=== PATIENT | female | born 1965 | race African-American/Black ===

== ENCOUNTER 2019-09-30 14:11 | Inpatient (IN) | payer MEDICARE, MEDICAID ==
[2019-09-30] MEDS ORDERED: Nitroglycerin 50 MG/250 ML BOT 250 ML ONE (14:56)
[2019-09-30] MEDS ORDERED: Nitroglycerin 50 MG/250 ML BOT 250 ML IVPB SCH (15:00)
[2019-09-30 15:24] LABS: Bilirubin Negative (Negative); Blood, Urine 1+ (Negative); Clarity Clear (Clear); Glucose, Urine (Dipstick) Normal (Negative); Leukocyte Negative Leu/uL (Negative); Nitrite Negative (Negative); Protein, Urine (Dipstick) 20 mg/dL (Neg-Trace); RBC/HPF 0-3 HPF (0-3); Squamous Epithelial None Seen HPF (0-3); Urobilinogen Normal mg/dL (Less than 2); WBC/HPF 0-3 HPF (0-3)
[2019-09-30 15:26] LABS: Hemoglobin 15.5 g/dL (12.0-16.0); Mean Corpuscular HGB CONC 31.6 g/dL (32.0-36.0); Mean Corpuscular Hemoglobin 31.8 pg (27.0-31.0); Mean Platelet Volume 7.9 fL (7.4-10.4); Platelet Count 196 thou/uL (130-400); RBC Distribution Width 15.9 % (11.5-14.5); Red Blood Cell (RBC) Count 4.86 mill/uL (4.20-5.40)
[2019-09-30 15:26] LABS: Bacteria/HPF Rare-Few HPF (None Seen)
[2019-09-30] MEDS ORDERED: Ketamine 50 MG/ML (10ML VIAL) ONE (15:30)
[2019-09-30] MEDS ORDERED: Rocuronium Bromide 50 MG/5 ML VIAL ONE (15:31)
[2019-09-30 15:52] LABS: Anisocytosis SLIGHT = 6-15 cells (100X) (0-5/hpf); Band 10 % (5-11); Lymphocytes 18 % (21-51); MDiff Complete? YES; Macrocytosis SLIGHT = 6-15 cells (100X) (0-5/hpf); Monocytes 9 % (0-10); Neutrophil 63 % (42-75); Nucleated RBC 11 % (0); Platelet Morphology Comment Appears Adequate; Polychromasia MODERATE = 3-4 cells (100X) (0-2/hpf); White Blood Cell (WBC) Count 6.9 thou/uL (4.8-10.8)
[2019-09-30] MEDS ORDERED: fentaNYL Citrate/PF 2,000 MCG in Sodium Chloride 0.9% 60 ML IV SCH (15:57)
--- NOTE | 2019-09-30 15:57 | RAD ---
EXAM: Single view of the chest HISTORY: CHF exacerbation and dyspnea COMPARISON: 09/30/2019 at 10:42 AM FINDINGS: Single view of the chest shows an enlarged but stable cardiomediastinal silhouette. An end otracheal tube is seen with its tip at the lower border of the clavicles. An NG tube courses off the inferior aspect of the film. There are bilateral perihilar hazy opacities likely secondary to pu lmonary edema. The bones are unremarkable. IMPRESSION: 1. Appropriate position of lines and tubes 2. Congestive heart failure
[2019-09-30 16:12] LABS: Actual Bicarbonate (HCO3a) 43.6 mEq/L (22-28); Analyzer IN Cardio ER; Base Excess (BEa) 10.6 mEq/L (-2.0 to +3.0); Calcium, Ionized 1.12 mmol/L (1.12-1.30); Carboxyhemoglobin (COHb) 3.4 gm% (0.0-3.0); Hemoglobin (Hb) 15.8 g/dL (12.0-16.0); Potassium - ABG Lab 3.35 mmol/L (3.70-5.30)
[2019-09-30 16:14] LABS: CO2 Tension 107.3 mmHg (35.0-45.0); O2 Tension (PaO2) 53.5 mmHg (80.0-100.0); pH, Arterial 7.23 (7.35-7.45)
[2019-09-30 16:15] LABS: ALV-art Gradient 240.175 (0-20); Puncture Site RB
[2019-09-30 16:16] LABS: ALV-art Gradient 529.375 (0-20); Actual Bicarbonate (HCO3a) 35.7 mEq/L (22-28); Analyzer IN Cardio ER; Base Excess (BEa) 9.2 mEq/L (-2.0 to +3.0); CO2 Tension 55.3 mmHg (35.0-45.0); Calcium, Ionized 1.06 mmol/L (1.12-1.30); Carboxyhemoglobin (COHb) 3.4 gm% (0.0-3.0); Hemoglobin (Hb) 15.7 g/dL (12.0-16.0); O2 Tension (PaO2) 114.5 mmHg (80.0-100.0); Potassium - ABG Lab 3.27 mmol/L (3.70-5.30); Puncture Site RB; pH, Arterial 7.43 (7.35-7.45)
[2019-09-30] MEDS ORDERED: Lorazepam 2 MG/ML VIAL ONE ×2 (17:43→18:49)
[2019-09-30] MEDS ORDERED: Propofol 1,000 MG/100 ML VIAL IV ONE ×2 (17:46→18:50)
--- NOTE | 2019-09-30 18:07 | HP ---
PRIMARY CARE PHYSICIAN: Nusrat. CHIEF COMPLAINT: Respiratory failure, intubated. HISTORY OF PRESENT ILLNESS: This is a 53-year-old female with a history of hypertension, asthma, obstructive sleep apnea and undetermined type of congestive heart failure, on 80 mg of Lasix twice a day. Her mother noted that the patient has been really sleepy lately and the patient had a TSH test showing a TSH of 40, the previous week. She was seen in Dr. Rudolph's office with the mother today and noted to be room air sats in the 70s, so she was sent to the emergency room. There, she was found to be dyspneic, hypoxic, very short of breath. In the [facility], she was put on BiPAP, which helped her breathing significantly. She had no more dyspnea. They are not able to use any lower oxygen levels for the BiPAP however. The patient was noted to have an elevated brain natriuretic peptide and congestive changes on her chest x-ray and so she was transferred to our hospital. En route, the patient started becoming a little bit confused. EMS concerned about the high levels of oxygen with the BiPAP and so they took her off the BiPAP, but kept her on a non-rebreather. She became more confused and somnolent. She got to the emergency room, here she was difficult to arouse at all. They did an ABG and found her to be in hypercapnic respiratory failure with a CO2 over 100. This did not improve with BiPAP and so the patient had to be intubated. Her repeat ABG after the intubation, the CO2 was down to the 50s. She has been otherwise stable. PAST MEDICAL HISTORY: All history taken from the chart due to patient's intubated status; 1. Hypertension. 2. Hypothyroidism. 3. Asthma. 4. Obstructive sleep apnea. 5. Congestive heart failure noted in the ER note today only. PAST SURGICAL HISTORY: 1. Brain surgery. 2. Hysterectomy. PAST PSYCHIATRIC HISTORY: Includes depression and she sees [facility]. SOCIAL HISTORY: The patient smokes cigarettes one pack per day. Drinks socially about once a month. No alcohol use. Lives with her mother. ALLERGIES: NO KNOWN DRUG ALLERGIES. CURRENT MEDICATIONS: 1. Amlodipine 5 mg daily. 2. Aspirin 81 mg daily. 3. Clonidine 0.2 mg 3 times a day. 4. Coreg 6.25 mg twice a day. 5. Lasix 80 mg two times a day. 6. Levothyroxine 200 mcg daily. 7. Potassium chloride 10 mEq twice a day. 8. ProAir inhaler as needed. 9. Risperdal 0.5 mg daily at bedtime. 10. Benazepril 40 mg daily. FAMILY HISTORY: Unable to obtain secondary to the patient's mental status. REVIEW OF SYSTEMS: Unable to obtain secondary to the patient's mental status. PHYSICAL EXAMINATION: VITAL SIGNS: Blood pressure 170/95, pulse 88, respirations 25 on the vent, temperature 98.2. GENERAL: Well-developed obese female, sedated on the vent. HEENT: Pupils are 3 mm bilaterally and sluggish reaction after sedation for intubation. Oropharynx obscured by ET tube. NECK: No lymphadenopathy. No thyroid nodules or enlargement. She does have some JVD lying down flat. HEART: Regular rate and rhythm. No murmurs, rubs, or gallops. LUNGS: She has some coarse breath sounds bilaterally with no focal findings. ABDOMEN: Soft, obese, and does not appear tender to palpation. There is no guarding. There are no masses and normoactive bowel sounds. EXTREMITIES: No clubbing or cyanosis. There is any 1+ pitting edema in bilateral lower extremities to about the mid alvarado area. SKIN: No rashes or lesions noted. NEUROLOGIC: The patient is currently without reflexes and pupillary exam is equal bilaterally though is slow. Per the ER physician report before sedation intubation, she was moving all extremities equally, had no facial droop and her pupils were equally reactive and brisk. LABORATORY DATA: CBC with normal white count, normal hemoglobin, hematocrit low at 49, MCV is elevated at 101, platelet count normal. No bandemia. Complete metabolic panel is notable for chloride of 97 and bicarb of 35, a BUN of 23 and a creatinine of 1.18, glucose of 110, AST is 61, ALT is 91. The rest was normal. Brain natriuretic peptide was elevated at 179. TSH was elevated at 46. Troponin was negative x2 and negative x3 now. Lactic acid was normal. Urinalysis showed no evidence of infection. Blood gases as per HPI. IMAGING STUDIES: Chest x-ray, I did review the chest x-ray done in the emergency room along with the radiologist's report. There is an enlarged mediastinal silhouette with some bilateral perihilar opacities, likely secondary to pulmonary edema, also with appropriately placed endotracheal tube. ASSESSMENT: 1. Acute on chronic hypercapnic and hypoxic respiratory failure. The patient has evidence with high bicarb on her basic metabolic panel of chronic CO2 retention. Uncertain what tipped her over the edge today, most likely is due to congestive failure. We will consult Pulmonology for vent management. 2. Acute on chronic congestive heart failure, undetermined type. We will put the patient on IV Lasix 60 mg twice a day. We will consult Cardiology, Dr. Rudolph. We will get an echocardiogram as well. The patient is currently on a nitroglycerin drip. 3. Hypertension, uncontrolled. We will give IV medications to keep blood pressure under control. 4. Hypothyroidism. We will resume the patient's levothyroxine, we will give IV for now until she is able to take p.o. 5. GI prophylaxis. We will put the patient on Pepcid twice a day. 6. Deep venous thrombosis prophylaxis. We will put the patient on Lovenox subcu. 7. Acute renal failure. We will monitor closely. Hopefully, we will improve with diuresis of her congestive heart failure and control of her blood pressure, currently not significantly elevated. 8. Code status. I was unable to address this with the patient due to her intubated status. I did try calling the mother, Padmini Abdul, at [phone]. However, she is not answering her phone currently. I did leave a message for her to call the hospital. Job ID: [id number] [facility]
[2019-09-30] MEDS ORDERED: Acetaminophen 325 MG TAB PO PRN (18:17)
[2019-09-30] MEDS ORDERED: Senokot S 8.6-50 MG TAB PO PRN (18:17)
[2019-09-30] MEDS ORDERED: Ondansetron PF 4 MG/2 ML Vial IVP PRN (18:17)
[2019-09-30] MEDS ORDERED: Ondansetron ODT 4 MG TAB PO PRN (18:17)
[2019-09-30] MEDS ORDERED: Acetaminophen 650 MG Suppository PR PRN (18:17)
[2019-09-30 19:14] LABS: Troponin I Less than 0.010 ng/mL (< 0.028)
[2019-09-30] MEDS ORDERED: Propofol BOLUS 1,000 MG/100 ML VIAL IV PRN (19:25)
[2019-09-30] MEDS ORDERED: Morphine 2 MG/ML SYRINGE SLOW IVP PRN (19:25)
[2019-09-30] MEDS ORDERED: Fentanyl BOLUS 250 ML IVPB PRN (19:25)
[2019-09-30] MEDS ORDERED: DISCONTINUE PREVIOUS NARCOTIC PAIN MEDICATIONS AND BENZODIAZEPINES FS SCH (19:25)
[2019-09-30] MEDS: Famotidine/PF 20 mg/2ml Vial SLOW IVP SCH (20:03)
[2019-09-30] MEDS: hydrALAZINE 20 MG/ML VIAL SLOW IVP PRN (22:25)
[2019-09-30 22:26] LABS: Troponin I Less than 0.010 ng/mL (< 0.028)
[2019-09-30] MEDS: Propofol 1,000 MG/100 ML VIAL IV PRN (22:57)
[2019-10-01 04:13] LABS: #Basophils 0.1 thou/uL (0.0-0.2); #Lymphocytes 2.1 thou/uL (1.20-3.40); #Monocytes 1.3 thou/uL (0.11-0.59); #Neutrophils 10.7 thou/uL (1.40-6.50); %Basophils 0.5 % (0.0-1.0); %Eosinophils 0.3 % (0.0-10.0); %Lymphocytes 14.9 % (21.0-51.0); %Monocytes 8.8 % (0.0-10.0); %Neutrophils 75.5 % (42.0-75.0); Hemoglobin 15.2 g/dL (12.0-16.0); Mean Corpuscular HGB CONC 31.3 g/dL (32.0-36.0); Mean Platelet Volume 8.2 fL (7.4-10.4); Platelet Count 189 thou/uL (130-400); RBC Distribution Width 16.4 % (11.5-14.5); White Blood Cell (WBC) Count 13.4 thou/uL (4.8-10.8)
[2019-10-01 04:23] LABS: Anion Gap 15 mmol/L (10-20); BUN (Urea Nitrogen) 18 mg/dL (9.8-20.1); Calc. Creatinine Clearance 118 mL/min (70-130); Calcium 8.6 mg/dL (7.8-10.44); Carbon Dioxide 36 mmol/L (22-29); Chloride 95 mmol/L (98-107); Estimated GFR-MDRD 81; Glucose 86 mg/dL (70-105); Sodium 143 mmol/L (136-145)
[2019-10-01] MEDS: Levothyroxine Sodium 200 MCG VIAL IVP SCH (05:41)
[2019-10-01] MEDS: Furosemide 100 MG/10 ML VIAL SLOW IVP SCH ×2 (05:41→13:30)
[2019-10-01] MEDS: hydrALAZINE 20 MG/ML VIAL SLOW IVP PRN (06:00)
[2019-10-01 08:15] LABS: Actual Bicarbonate (HCO3a) 36.9 mEq/L (22-28); Base Excess (BEa) 13.8 mEq/L (-2.0 to +3.0); CO2 Tension 39.5 mmHg (35.0-45.0); Carboxyhemoglobin (COHb) 1.5 gm% (0.0-3.0); Hemoglobin (Hb) 16.5 g/dL (12.0-16.0); Potassium - ABG Lab 2.55 mmol/L (3.70-5.30)
[2019-10-01 08:17] LABS: O2 Tension (PaO2) 49.2 mmHg (80.0-100.0); Puncture Site L.R.; pH, Arterial 7.59 (7.35-7.45)
[2019-10-01 08:18] LABS: ALV-art Gradient 115.325 (0-20)
[2019-10-01] MEDS: Lorazepam 2 MG/ML VIAL SLOW IVP PRN ×2 (08:28→15:10)
[2019-10-01] MEDS: Propofol 1,000 MG/100 ML VIAL IV PRN ×2 (08:28→16:16)
[2019-10-01] MEDS: Enoxaparin Sodium 40 MG/0.4 ML SYRINGE SC SCH (08:36)
[2019-10-01] MEDS: Famotidine/PF 20 mg/2ml Vial SLOW IVP SCH ×2 (08:36→20:04)
[2019-10-01] MEDS ORDERED: FLU VACC QS2019-20(6MOS UP)/PF 60 MCG/0.5 ML SYRINGE IM ONE (09:00)
[2019-10-01] MEDS ORDERED: Potassium Chloride 40 MEQ in Premix Bag 1 BAG IVPB PRN (09:22)
[2019-10-01] MEDS ORDERED: CCU ELECTROLYTE REPLACEMENT PROTOCOL FS PRN (09:22)
[2019-10-01] MEDS ORDERED: PHOS-NAK 1 PKT PACK PO PRN ×2 (09:22)
[2019-10-01] MEDS ORDERED: Magnesium Oxide 400 MG TAB PO PRN ×2 (09:22)
[2019-10-01] MEDS ORDERED: Magnesium 2 GM/50 ML 2 GM in Premix Bag 1 BAG IVPB PRN (09:22)
[2019-10-01] MEDS ORDERED: Potassium Phosphate 9 MMOL in Sodium Chloride 0.9% 100 ML IVPB PRN (09:22)
[2019-10-01] MEDS ORDERED: Potassium Phosphate 15 MMOL in Sodium Chloride 0.9% 250 ML 250 ML IV PRN (09:22)
[2019-10-01] MEDS ORDERED: Potassium Chloride 20 MEQ TAB PO PRN (09:22)
[2019-10-01] MEDS ORDERED: Potassium Chloride 40 MEQ in Sodium Chloride 0.9% 250 ML 250 ML IVPB PRN (09:22)
[2019-10-01] MEDS ORDERED: Potassium Phosphate 12 MMOL in Sodium Chloride 0.9% 250 ML 250 ML IV PRN (09:22)
[2019-10-01] MEDS: Cefepime 1 GM in Sodium Chloride 0.9% 100 ML IVPB SCH ×2 (09:37→20:04)
[2019-10-01] MEDS: methylPREDNISolone Sod Succ 40 MG VIAL IVP SCH ×2 (11:42→17:37)
--- NOTE | 2019-10-01 14:15 | CON ---
DATE OF CONSULTATION: HISTORY OF PRESENT ILLNESS: Luiz Abdul is a 53-year-old morbidly obese female, who is now in the ICU, intubated on the vent. I spoke to her daughter, who is a supervisor television chassis repair, states that she was taken to Dr. Silverio's office, primary care physician, in [place] with symptoms of being excessively sleepy. She was hypoxic. She was then transferred to [facility] via [place] and the diagnosis of CHF, she was given some Lasix. Though, BNP is only 150. Smoker, unclear how much she smokes, but according to the daughter, she walks in the house, goes outside the house without getting markedly short of breath. . PAST MEDICAL HISTORY: Morbid obesity, hypertension, probably asthma, probably COPD, severe hypothyroidism. According to the daughter, she is giving her medication for anxiety. PAST SURGICAL HISTORY: Included hysterectomy, some kind of craniotomy. PSYCHIATRIC HISTORY: Depression, sees [facility]. HOME MEDICATIONS: Include; 1. Amlodipine 10. 2. Aspirin 81. 3. Catapres 0.1 three times a day. 4. Coreg 12.5 two a day. 5. Lasix 80 mg a day. 6. Synthroid 100 mg two tablets a day. 7. Potassium. 8. ProAir. 9. Risperidone 1 mg. 10. Benazepril 40. ALLERGIES: APPARENTLY, NONE. REVIEW OF SYSTEMS: Unobtainable. PHYSICAL EXAMINATION: VITAL SIGNS: Pulse 67, blood pressure 100/70, saturations are 95%, respirations 20. GENERAL: On sedation. When it is decreased, she is awake, responsive. 2+ edema. I's and O's are negative. CHEST: Decreased breath sounds. No wheezing or crackles. CARDIAC: Normal S1 and S2. No gallops. ABDOMEN: No masses. LABORATORY DATA: White count 13,000, H and H of 15 and 48, and platelet count 189. TSH was elevated at 40. Potassium was low at 3. Echo is being performed. A pO2 was 49, pCO2 of 39, pH of 7.59 on a rate of 30, FiO2 of 30%. IMPRESSION: 1. Respiratory failure. 2. Congestive heart failure. 3. Possibly aspiration. 4. Morbid obesity. 5. Probably sleep apnea. 6. Depression. 7. Bipolar. 8. Tobacco abuse. 9. Chronic obstructive pulmonary disease. 10. Severe hypothyroidism. PLAN: I agree with IV Synthroid, IV antibiotics, neb treatments, and steroids. Await results of the echo, wean slowly. She may probably need an outpatient sleep study. Obviously, we discussed situation when she is more awake and responsive. This is a 45-minute of critical care time. Job ID: [id number]
--- NOTE | 2019-10-01 20:48 | CON ---
DATE OF CONSULTATION: 10/01/2019 REASON FOR CONSULTATION: Heart failure. HISTORY OF PRESENT ILLNESS: Mrs. Abdul is a very pleasant 53-year-old female, who comes to the hospital for shortness of breath. She was seeing her primary care doctors, was found to be dyspneic, hypoxic and very short-winded. She went to the [place] [facility]. She was placed on BiPAP and eventually transferred over here. She was intubated eventually for airway protection as she became obtunded and was found to be hypercapnic with CO2 over 100. Cardiology is being consulted for evaluation of possible heart failure. I saw her in the office in 2018. At that point, she was there for complaints of lower extremity edema and shortness of breath. She had a stress and an echo ordered; however, she never did any of these procedures. She never followed up and that was the only time she was seen. On my evaluation today, Ms. Abdul is intubated and sedated and cannot provide any information. PAST MEDICAL HISTORY: 1. Hypertension. 2. Hypothyroidism. 3. Bronchial asthma. 4. Obstructive sleep apnea. 5. History of possible congestive heart failure. She has been on Lasix for the last year. SURGICAL HISTORY: 1. Some type of brain surgery. 2. Hysterectomy. SOCIAL HISTORY: One pack a day. Social alcohol use. No drug use. ALLERGIES: NO KNOWN DRUG ALLERGIES. OUTPATIENT MEDICATIONS: 1. Amlodipine 5 mg a day. 2. Aspirin 81 a day. 3. Clonidine 0.2 mg 3 times a day. 4. Coreg 6.25 mg b.i.d. 5. Lasix 80 mg twice a day. 6. Levothyroxine 200 mcg a day. 7. Potassium chloride 10 mEq twice a day. 8. ProAir. 9. Risperdal. 10. Benazepril 40 mg a day. FAMILY HISTORY: Unobtainable as patient is sedated and intubated. REVIEW OF SYSTEMS: Unobtainable as the patient is sedated and intubated. ALLERGIES: NO KNOWN DRUG ALLERGIES. PHYSICAL EXAMINATION: VITAL SIGNS: Temperature up to 100.2 earlier today, however, since then has been about 98.9, pulse 77, respiratory rate 10, saturating 100% on 40% FiO2, blood pressure 121/59. GENERAL: Sedated and intubated. LUNGS: Coarse breath sounds anteriorly. NECK: Supple. CARDIOVASCULAR: S1 and S2. No S3 or S4. There is a grade 3/6 systolic murmur at the right upper sternal border. ABDOMEN: Soft. Positive bowel sounds. EXTREMITIES: 2+ edema. SKIN: Warm and dry. LABORATORY DATA: Laboratory work was reviewed. White count of 13, hemoglobin of 15, hematocrit of 48, and platelet count of a 189. ABG was reviewed. PH went from 7.2 to 7.5 and the CO2 went from 107 down to 39. Chemistries showed a sodium of 143, potassium of 3.0, BUN of 18, creatinine of 0.88. Troponin was negative x3. BNP was 156. UA 1+ blood and crystals, otherwise unremarkable. EKG was reviewed. Normal sinus rhythm. No ischemic changes. Blood cultures were negative as well as urine culture so far. Chest x-ray showed changes consistent with heart failure. Echocardiogram was reviewed. It showed LV function of 60% to 65% There is grade 1 diastolic dysfunction, LVH. Right-sided pressures are mildly elevated. ASSESSMENT AND PLAN: 1. Acute on chronic diastolic congestive heart failure. 2. Hypercapnic hypoxic respiratory insufficiency requiring mechanical ventilation. 3. Left ventricular hypertrophy. 4. Hypertension. PLAN: 1. Agree with continued diuresis for now. 2. Most likely her lower extremity edema is related to right-sided heart failure from sleep apnea and obesity hypoventilation syndrome. 3. Likely some level of chronic obstructive pulmonary disease given tobacco use. 4. Continue supportive care otherwise. Thank you for letting us to participate in the care of your patient. We will continue follow. 45 minutes of critical care time. Job ID: [id number]
--- NOTE | 2019-10-01 20:56 | PDOC.HOSPP ---
- Subjective Encounter Date: 10/01/19 Encounter Time: 18:00 Subjective: f/u for resp failure on current SIMV with FIO2 50% likely due to COPD and hypercapnic insult. Remains on [facility] ventilation with echo showing preserved EF 60%. - Objective Vital Signs & Weight: Vital Signs (12 hours) Temp Pulse Resp BP Pulse Ox 10/01/19 20:00 99.1 F 10 L 10/01/19 19:00 84 144/80 H 10/01/19 18:00 10 L 10/01/19 16:19 76 123/61 10/01/19 16:00 98.9 F 10 L 10/01/19 14:00 10 L 10/01/19 13:32 86 135/61 10/01/19 13:31 74 10 L 98 10/01/19 12:00 98.9 F 10 L 10/01/19 10:14 76 154/60 H 10/01/19 10:00 12 Weight Admit Weight 214 lb Weight 214 lb 8.156 oz Most Recent Monitor Data Heart Rate from ECG 73 NIBP 127/65 NIBP BP-Mean 85 Respiration from ECG 16 SpO2 100 I&O: 09/30/19 10/01/19 10/02/19 06:59 06:59 06:59 Intake Total 330 851 Output Total 545 2755 Balance -215 -1904 Result Diagrams: 10/01/19 03:25 10/01/19 03:25 Additional Labs: Microbiology 09/30/19 16:02 Venous blood - Right Arm Blood Culture - Preliminary Specimen has been received and culture in progress. No Growth to date. 09/30/19 16:02 Venous blood - Left Arm Blood Culture - Preliminary Specimen has been received and culture in progress. No Growth to date. 09/30/19 14:55 Urine adams catheter Urine Culture - Preliminary NO GROWTH AT 24 HOURS Laboratory Tests 09/24/19 09/30/19 09/30/19 09:17 10:38 10:38 WBC MCV Potassium 3.5 3.6 Troponin I B-Natriuretic Peptide 179.3 H 09/30/19 09/30/19 09/30/19 15:13 15:13 15:13 WBC 6.9 MCV 101.0 H Potassium Troponin I 0.013 B-Natriuretic Peptide 156.2 H 09/30/19 09/30/19 18:38 21:35 WBC MCV Potassium Troponin I Less than 0.010 Less than 0.010 B-Natriuretic Peptide Radiology Reviewed by me: Yes (Echo - EF 60-65%, Grade I/III diast dysfx, RVSP 37mmHg) EKG Reviewed by me: Yes (Tele - SR) Hospitalist ROS - Medication Medications: Active Medications Generic Name Dose Route Start Last Admin Trade Name Freq PRN Reason Stop Dose Admin Albuterol/Ipratropium 3 ml 10/01/19 13:00 10/01/19 18:59 Duoneb NEB 3 ml [id number] RAHEEL Administration Enoxaparin Sodium 40 mg 10/01/19 09:00 10/01/19 08:36 Lovenox SC 40 mg 0900 RAHEEL Administration Famotidine 20 mg 09/30/19 21:00 10/01/19 20:04 Pepcid SLOW IVP 20 mg Q12HR RAHEEL Administration Furosemide 60 mg 10/01/19 06:00 10/01/19 13:30 Lasix SLOW IVP 60 mg 0600,1400 RAHEEL Administration Hydralazine HCl 10 mg 09/30/19 18:17 10/01/19 06:00 Apresoline SLOW IVP 10 mg Q4H PRN Administration SBP Greater Than 180 Cefepime HCl 1 gm/ Sodium 100 mls @ 200 mls/hr 10/01/19 09:00 10/01/19 20:04 Chloride IVPB 100 mls Q12HR RAHEEL Administration Levothyroxine Sodium 120 mcg 10/01/19 06:00 10/01/19 05:41 Synthroid IVP Not Given 0600 RAHEEL Lorazepam 2 mg 09/30/19 19:25 10/01/19 15:10 Ativan SLOW IVP 10/30/19 19:25 2 mg Q1H PRN Administration Breakthrough agitation Methylprednisolone Sodium Succinate 40 mg 10/01/19 12:00 10/01/19 17:37 Solu-Medrol IVP 40 mg Q6HR RAHEEL Administration Potassium Chloride 40 meq 10/01/19 09:22 10/01/19 09:37 Klor-Con PER TUBE 40 meq ASDIR PRN Administration FOR SERUM K+ 2.5-3.5 Propofol 1,000 mg 09/30/19 19:25 10/01/19 16:16 Diprivan IV 10/30/19 19:25 1,000 mg INF PRN Administration TO ACHIEVE GOAL RASS Protocol - Exam General - other findings: sedate on mech ventilation Eye: PERRL ENT: normocephalic atraumatic, no oropharyngeal lesions ENT - other findings: ETT in place Neck: supple, symmetric, no JVD, no thyromegaly Heart: RRR, no gallops, no rubs, normal peripheral pulses, murmur present, II/IV Heart - other findings: RUSB murmur Respiratory - other findings: diminished and coarse bilat Gastrointestinal: soft, non-tender, non-distended, normal bowel sounds, no palpable masses Extremities: no cyanosis, 1+ LE edema Skin: normal turgor, no lesions Neurological - other findings: sedate on mech ventilation Psychiatric: somnolent, lethargic Hosp A/P (1) Acute respiratory failure with hypoxia and hypercapnia Code(s): J96.01 - ACUTE RESPIRATORY FAILURE WITH HYPOXIA; J96.02 - ACUTE RESPIRATORY FAILURE WITH HYPERCAPNIA Status: Acute Plan: Multifactorial process, continue mech ventilation, aggressive pulmonary support , wean off ventilator as clinically tolerated (2) Acute on chronic diastolic CHF (congestive heart failure) Code(s): I50.33 - ACUTE ON CHRONIC DIASTOLIC (CONGESTIVE) HEART FAILURE Status : Acute Plan: Lasix IV, daily weight, I/O's, EF preserved 60-65% (3) ERIKA (obstructive sleep apnea) Code(s): G47.33 - OBSTRUCTIVE SLEEP APNEA (ADULT) (PEDIATRIC) Status: Chronic Plan: Likely untreated, outpt sleep study for home CPAP (4) Tobacco abuse Code(s): Z72.0 - TOBACCO USE Status: Chronic Plan: Tobacco cessation resources (5) COPD exacerbation Code(s): J44.1 - CHRONIC OBSTRUCTIVE PULMONARY DISEASE W (ACUTE) EXACERBATION Status: Acute Plan: Continue Solumedrol, Duonebs, Cefepime (6) BECKY (acute kidney injury) Code(s): N17.9 - ACUTE KIDNEY FAILURE, UNSPECIFIED Status: Acute Plan: Resolving (7) Morbid obesity Code(s): E66.01 - MORBID (SEVERE) OBESITY DUE TO EXCESS CALORIES Status: Chronic - Plan continue antibiotics, geriatric social work professor, respiratory therapy, DVT proph w/SCDs Continue critical supportive mgmt Wean SIMV as clinically indicated Continue Solumedrol/Duonebs/Cefepime Continue Lasix IV CCU sedation protocol AM lab: BMP, CBC, ABG PCXR in am
[2019-10-02] MEDS: methylPREDNISolone Sod Succ 40 MG VIAL IVP SCH ×4 (00:09→18:16)
[2019-10-02] MEDS: Propofol 1,000 MG/100 ML VIAL IV PRN ×3 (00:18→22:24)
[2019-10-02 04:02] LABS: Hemoglobin 15.9 g/dL (12.0-16.0); Lymphocytes 5 % (21-51); MDiff Complete? YES; Mean Corpuscular Hemoglobin 31.4 pg (27.0-31.0); Mean Platelet Volume 8.4 fL (7.4-10.4); Monocytes 5 % (0-10); Neutrophil 90 % (42-75); Nucleated RBC 1 % (0); Platelet Count 194 thou/uL (130-400); Platelet Morphology Comment Appears Adequate; RBC Distribution Width 16.6 % (11.5-14.5); Red Blood Cell (RBC) Count 5.07 mill/uL (4.20-5.40); White Blood Cell (WBC) Count 12.1 thou/uL (4.8-10.8)
[2019-10-02 04:07] LABS: Calc. Creatinine Clearance 68 mL/min (70-130); Estimated GFR-MDRD 46
[2019-10-02 04:10] LABS: Chloride 95 mmol/L (98-107); Potassium 3.4 mmol/L (3.5-5.1); Sodium 145 mmol/L (136-145)
[2019-10-02 04:13] LABS: Anion Gap 21 mmol/L (10-20); BUN (Urea Nitrogen) 20 mg/dL (9.8-20.1); Calcium 8.1 mg/dL (7.8-10.44); Carbon Dioxide 32 mmol/L (22-29); Glucose 119 mg/dL (70-105)
[2019-10-02] MEDS: Furosemide 100 MG/10 ML VIAL SLOW IVP SCH ×2 (05:05→14:22)
[2019-10-02] MEDS: Levothyroxine Sodium 200 MCG VIAL IVP SCH (05:05)
[2019-10-02 08:15] LABS: Base Excess (BEa) 13.7 mEq/L (-2.0 to +3.0); CO2 Tension 54.5 mmHg (35.0-45.0); Calcium, Ionized 1.01 mmol/L (1.12-1.30); Carboxyhemoglobin (COHb) 1.4 gm% (0.0-3.0); Hemoglobin (Hb) 16.2 g/dL (12.0-16.0); O2 Tension (PaO2) 62.5 mmHg (80.0-100.0); pH, Arterial 7.48 (7.35-7.45)
[2019-10-02 08:27] LABS: ALV-art Gradient 225.875 (0-20); Puncture Site L.R.
--- NOTE | 2019-10-02 08:57 | RAD ---
CHEST 1 VIEW: INDICATION: History of intubation. COMPARISON: Prior exam dated 09/30/2019. FINDINGS: The patient remains intubated with gastric catheter placement. Cardiomegaly and pulmonary vascular c ongestion persist. There are enlarging bilateral pleural effusions. There is worsening airspace opa city in both lower lobes suspicious for atelectasis. No pneumothorax is evident. IMPRESSION: Worsening congestive heart failure. POS: [facility]
[2019-10-02] MEDS: Famotidine/PF 20 mg/2ml Vial SLOW IVP SCH ×2 (09:22→21:23)
[2019-10-02] MEDS: Enoxaparin Sodium 40 MG/0.4 ML SYRINGE SC SCH (09:23)
[2019-10-02] MEDS: Cefepime 1 GM in Sodium Chloride 0.9% 100 ML IVPB SCH ×2 (09:23→21:23)
--- NOTE | 2019-10-02 09:27 | PRG ---
DATE OF SERVICE: 10/02/2019 SUBJECTIVE: This morning sedation was turned off. She is more awake, responsive. OBJECTIVE: VITAL SIGNS: Temperature 97, pulse 72, blood pressure 120/67, and sats 100%. I's and O's have been consistently negative. CHEST: Decreased breath sounds. No wheezing. CARDIAC: Normal S1 and S2. No gallops. ABDOMEN: No masses. LABORATORY DATA: PO2 of 62, pCO2 of . Lytes are normal. Creatinine 1.45. White count 12,000. X-ray shows what appears to be slightly increasing pleural effusion, though EF was clearly normal. IMPRESSION: Respiratory failure, morbid obesity, advanced age, probably diastolic dysfunction. PLAN: I doubt she got significant CHF. BNP is normal. Echo was normal. Possibly the right lung may be atelectatic versus pneumonia. Hold sedation. Continue neb treatments, steroids, and antibiotics. to see whether she is weanable. One-half hour of critical time. Job ID: [id number]
--- NOTE | 2019-10-02 18:59 | PDOC.HOSPP ---
- Subjective Encounter Date: 10/02/19 Encounter Time: 18:45 Subjective: f/u for resp failure on mech vent with SIMV @ 45% FIO2. Tolerating TF's and titrated on Diprivan. Nursing reports increased oral secretions. + BM's today. - Objective Vital Signs & Weight: Vital Signs (12 hours) Temp Pulse Resp BP Pulse Ox 10/02/19 18:36 72 131/65 10/02/19 18:00 24 H 10/02/19 16:57 72 152/67 H 10/02/19 16:00 98.7 F 19 10/02/19 14:13 96 140/70 10/02/19 14:12 75 23 H 93 L 10/02/19 14:00 17 10/02/19 12:00 98.9 F 15 10/02/19 11:16 86 129/93 H 10/02/19 10:00 25 H 10/02/19 09:20 79 129/82 10/02/19 08:00 13 96 10/02/19 07:52 72 129/67 10/02/19 07:50 77 10 L 10/02/19 07:45 97.7 F Weight Admit Weight 214 lb Weight 219 lb 12.814 oz Most Recent Monitor Data Heart Rate from ECG 70 NIBP 131/65 NIBP BP-Mean 87 Respiration from ECG 17 SpO2 96 I&O: 10/01/19 10/02/19 10/03/19 06:59 06:59 06:59 Intake Total 330 1083 720 Output Total 545 3005 1022 Balance -215 -1922 -302 Result Diagrams: 10/02/19 03:10 10/02/19 03:10 Additional Labs: Microbiology 09/30/19 16:02 Venous blood - Right Arm Blood Culture - Preliminary Specimen has been received and culture in progress. No Growth to date. 09/30/19 16:02 Venous blood - Left Arm Blood Culture - Preliminary Specimen has been received and culture in progress. No Growth to date. 09/30/19 14:55 Urine adams catheter Urine Culture - Preliminary NO GROWTH AT 24 HOURS Laboratory Tests 09/24/19 09/30/19 09/30/19 09:17 10:38 10:38 WBC MCV Potassium 3.5 3.6 Troponin I B-Natriuretic Peptide 179.3 H 09/30/19 09/30/1920 15:13 15:13 15:13 WBC 6.9 MCV 101.0 H Potassium Troponin I 0.013 B-Natriuretic Peptide 156.2 H 09/30/19 09/30/19 18:38 21:35 WBC MCV Potassium Troponin I Less than 0.010 Less than 0.010 B-Natriuretic Peptide Radiology Reviewed by me: Yes (PCXR - bilat pleural effusions, ETT/lines in place) EKG Reviewed by me: Yes (Tele - SR) Hospitalist ROS - Medication Medications: Active Medications Generic Name Dose Route Start Last Admin Trade Name Freq PRN Reason Stop Dose Admin Albuterol/Ipratropium 3 ml 10/01/19 13:00 10/02/19 18:35 Duoneb NEB 3 ml [id number] RAHEEL Administration Enoxaparin Sodium 40 mg 10/01/19 09:00 10/02/19 09:23 Lovenox SC 40 mg 0900 RAHEEL Administration Famotidine 20 mg 09/30/19 21:00 10/02/19 09:22 Pepcid SLOW IVP 20 mg Q12HR RAHEEL Administration Furosemide 60 mg 10/01/19 06:00 10/02/19 14:22 Lasix SLOW IVP 60 mg 0600,1400 RAHEEL Administration Hydralazine HCl 10 mg 09/30/19 18:17 10/01/19 06:00 Apresoline SLOW IVP 10 mg Q4H PRN Administration SBP Greater Than 180 Cefepime HCl 1 gm/ Sodium 100 mls @ 200 mls/hr 10/01/19 09:00 10/02/19 09:23 Chloride IVPB 100 mls Q12HR RAHEEL Administration Levothyroxine Sodium 120 mcg 10/01/19 06:00 10/02/19 05:05 Synthroid IVP 120 mcg 0600 RAHEEL Administration Lorazepam 2 mg 09/30/19 19:25 10/01/19 15:10 Ativan SLOW IVP 10/30/19 19:25 2 mg Q1H PRN Administration Breakthrough agitation Methylprednisolone Sodium Succinate 40 mg 10/01/19 12:00 10/02/19 18:16 Solu-Medrol IVP 40 mg Q6HR RAHEEL Administration Potassium Chloride 40 meq 10/01/19 09:22 10/02/19 04:49 Klor-Con PER TUBE 40 meq ASDIR PRN Administration FOR SERUM K+ 2.5-3.5 Propofol 1,000 mg 09/30/19 19:25 10/02/19 16:20 Diprivan IV 10/30/19 19:25 1,000 mg INF PRN Administration TO ACHIEVE GOAL RASS Protocol - Exam General - other findings: sedate on mech ventilation Eye: PERRL, anicteric sclera ENT: normocephalic atraumatic, no oropharyngeal lesions ENT - other findings: increased secretions around ETT Neck: supple, symmetric, no JVD Heart: RRR, no gallops, no rubs, normal peripheral pulses Respiratory - other findings: coarse sounds bilat, diminished in bases Gastrointestinal: soft, non-tender, non-distended, normal bowel sounds, no palpable masses Extremities: no cyanosis, no clubbing, no edema Skin: normal turgor, no lesions Neurological - other findings: sedate on mech ventilation Psychiatric: somnolent Hosp A/P (1) Acute respiratory failure with hypoxia and hypercapnia Code(s): J96.01 - ACUTE RESPIRATORY FAILURE WITH HYPOXIA; J96.02 - ACUTE RESPIRATORY FAILURE WITH HYPERCAPNIA Status: Acute Plan: Multifactorial, continue pulmonary supportive mgmt, mech ventilation (2) Acute on chronic diastolic CHF (congestive heart failure) Code(s): I50.33 - ACUTE ON CHRONIC DIASTOLIC (CONGESTIVE) HEART FAILURE Status : Acute Plan: ? component given preserved EF but diastolic influence possible (3) ERIKA (obstructive sleep apnea) Code(s): G47.33 - OBSTRUCTIVE SLEEP APNEA (ADULT) (PEDIATRIC) Status: Chronic (4) Tobacco abuse Code(s): Z72.0 - TOBACCO USE Status: Chronic (5) COPD exacerbation Code(s): J44.1 - CHRONIC OBSTRUCTIVE PULMONARY DISEASE W (ACUTE) EXACERBATION Status: Acute Plan: Continue Solumedrol, Duonebs, mech ventilation (6) BECKY (acute kidney injury) Code(s): N17.9 - ACUTE KIDNEY FAILURE, UNSPECIFIED Status: Acute Plan: Worsening, decrease IV Lasix 40mg daily (7) Morbid obesity Code(s): E66.01 - MORBID (SEVERE) OBESITY DUE TO EXCESS CALORIES Status: Chronic - Plan continue antibiotics, social work program coordinator, respiratory therapy, DVT proph w/SCDs Continue critical supportive mgmt Wean SIMV as clinically indicated Continue Solumedrol/Duonebs/Cefepime Continue Lasix IV 40mg daily CCU sedation protocol AM lab: BMP, CBC, ABG PCXR in am
--- NOTE | 2019-10-02 19:14 | PDOC.CPN ---
- Subjective Date: 10/02/19 Time: 19:10 Interval history: Remains intubated but currently awake and following commands on minimal sedation. - Review of Systems ROS unobtainable: due to endotracheal tube - Objective Allergies/Adverse Reactions: Allergies Allergy/AdvReac Type Severity Reaction Status Date / Time No Known Allergies Allergy Unverified 09/30/19 14:51 Visit Medications: Current Medications Acetaminophen (Tylenol) 650 mg PO Q4H PRN PRN Reason: Headache/Fever/Mild Pain (1-3) Acetaminophen (Tylenol) 650 mg [place] Q4H PRN PRN Reason: Headache/Fever/Mild Pain (1-3) Albuterol/Ipratropium (Duoneb) 3 ml NEB [id number] RAHEEL Last Admin: 10/02/19 18:35 Dose: 3 ml Enoxaparin Sodium (Lovenox) 40 mg SC 0900 RAHEEL Last Admin: 10/02/19 09:23 Dose: 40 mg Famotidine (Pepcid) 20 mg SLOW IVP Q12HR RAHEEL Last Admin: 10/02/19 09:22 Dose: 20 mg Furosemide (Lasix) 40 mg SLOW IVP DAILY RAHEEL Hydralazine HCl (Apresoline) 10 mg SLOW IVP Q4H PRN PRN Reason: SBP Greater Than 180 Last Admin: 10/01/19 06:00 Dose: 10 mg Nitroglycerin/Dextrose (Nitroglycerin 50 Mg/250 Ml Bot) 250 mls @ 0 mls/hr IVPB INF RAHEEL; Protocol Fentanyl Citrate 2,000 mcg/ (Sodium Chloride) 100 mls @ 0 mls/hr IV INF RAHEEL; Protocol Stop: 10/30/19 15:57 Fentanyl Citrate (Fentanyl Bolus) 250 mls @ 0 mls/hr IVPB PRN PRN PRN Reason: Breakthrough pain/agitation Stop: 10/30/19 19:25 Cefepime HCl 1 gm/ Sodium (Chloride) 100 mls @ 200 mls/hr IVPB Q12HR RAHEEL Last Admin: 10/02/19 09:23 Dose: 100 mls Potassium Chloride 40 meq/ (Sodium Chloride) 270 mls @ 135 mls/hr IVPB ASDIR PRN PRN Reason: FOR SERUM K+ 2.5 - 3.5 Potassium Chloride 40 meq/ (Device) 100 mls @ 50 mls/hr IVPB ASDIR PRN PRN Reason: FOR SERUM K+ 2.5 - 3.5 Magnesium Sulfate 1 gm/ Sodium (Chloride) 102 mls @ 102 mls/hr IV PRN PRN PRN Reason: MAG LEVEL 1.4 - 2.0 Magnesium Sulfate 2 gm/ Device 50 mls @ 50 mls/hr IVPB ASDIR PRN PRN Reason: MAGNESIUM < 1.4 Potassium Phosphate 9 mmol/ (Sodium Chloride) 103 mls @ 25.75 mls/hr IVPB ASDIR PRN PRN Reason: Phosphate 1.0-1.8 Potassium Phosphate 12 mmol/ (Sodium Chloride) 254 mls @ 63.5 mls/hr IV ASDIR PRN PRN Reason: Serum phosphate 0.5-0.9 Potassium Phosphate 15 mmol/ (Sodium Chloride) 255 mls @ 63.75 mls/hr IV ASDIR PRN PRN Reason: Serum Phos < 0.5 Levothyroxine Sodium (Synthroid) 120 mcg IVP 0600 [facility] Last Admin: 10/02/19 05:05 Dose: 120 mcg Lorazepam (Ativan) 2 mg SLOW IVP Q1H PRN PRN Reason: Breakthrough agitation Stop: 10/30/19 19:25 Last Admin: 10/01/19 15:10 Dose: 2 mg Magnesium Oxide (Magnesium Oxide) 400 mg PO BIDPRN PRN PRN Reason: FOR SERUM MAG 1.4 - 2.0 Magnesium Oxide (Magnesium Oxide) 800 mg PO PRN PRN PRN Reason: FOR SERUM MAG < 1.4 Methylprednisolone Sodium Succinate (Solu-Medrol) 40 mg IVP Q6HR [facility] Last Admin: 10/02/19 18:16 Dose: 40 mg Miscellaneous Medication (Phos-Nak) 1 pkt PO TIDPRN PRN PRN Reason: FOR PHOS LEVEL 1.0 - 1.8 Miscellaneous Medication (Phos-Nak) 2 pkt PO TIDPRN PRN PRN Reason: FOR PHOS LEVEL 0.5 - 1.0 Morphine Sulfate (Morphine) 2 mg SLOW IVP Q1H PRN PRN Reason: BREAKTHROUGH PAIN/Agitation Stop: 10/30/19 19:25 Discontinue Previous Narcotic Pain Medications And Benzodiazepines 1 each FS .ONE [facility] Stop: 10/30/19 19:25 Ccu Electrolyte (Replacement Protocol) 0 each FS PRN PRN PRN Reason: FOR ELECTROLYTE REPLACEMENT Ondansetron HCl (Zofran Odt) 4 mg PO Q6H PRN PRN Reason: Nausea/Vomiting Ondansetron HCl (Zofran) 4 mg IVP Q6H PRN PRN Reason: Nausea/Vomiting Potassium Chloride (K-Dur) 40 meq PO ASDIR PRN PRN Reason: FOR SERUM K+ 2.5 - 3.5 Potassium Chloride (Klor-Con) 40 meq PER TUBE ASDIR PRN PRN Reason: FOR SERUM K+ 2.5-3.5 Last Admin: 10/02/19 04:49 Dose: 40 meq Propofol (Diprivan) 1,000 mg IV INF PRN; Protocol PRN Reason: TO ACHIEVE GOAL RASS Stop: 10/30/19 19:25 Last Admin: 10/02/19 16:20 Dose: 1,000 mg Propofol (Diprivan Bolus) 20 mg IV Q5MIN PRN PRN Reason: BREAKTHROUGH AGITATION Stop: 10/30/19 19:25 Scopolamine (Transderm Scop) 1.5 mg TD Q3D RAHEEL Senna/Docusate Sodium (Senokot S) 2 tab PO BID PRN PRN Reason: Constipation Vital Signs & Weight: Vital Signs Temp Pulse Resp BP Pulse Ox 10/02/19 18:36 72 131/65 10/02/19 18:00 24 H 10/02/19 16:57 72 152/67 H 10/02/19 16:00 98.7 F 19 10/02/19 14:13 96 140/70 10/02/19 14:12 75 23 H 93 L 10/02/19 14:00 17 10/02/19 12:00 98.9 F 15 10/02/19 11:16 86 129/93 H 10/02/19 10:00 25 H 10/02/19 09:20 79 129/82 10/02/19 08:00 13 96 10/02/19 07:52 72 129/67 10/02/19 07:50 77 10 L 10/02/19 07:45 97.7 F Admit Weight 214 lb Weight 219 lb 12.814 oz - Physical Exam General: other (S/I following commands.) HEENT: mucus membranes moist Neck: supple neck Cardiac: systolic murmur Lungs: normal breath sounds Neuro: grossly intact Abdomen: active bowel sounds Extremities: 1+ LE edema Skin: clear Musculoskeletal: normal range of motion - Labs Result Diagrams: 10/02/19 03:10 10/02/19 03:10 Troponin/CKMB Troponin I Less than 0.010 ng/mL (< 0.028) 09/30/19 21:35 - Telemetry Sinus rhythms and dysrhythmias: sinus rhythm - Assessment/Plan Assessment/Plan: 1. Acute hypoxic hypercapnic respiratory insufficiency. 2. Acute on chronic diastolic heart faillure, improved. 3. HTN PLAN: - Seems euvolemic at this point. Would hold on any more diuresis for now. - Agree with plan for bronchoscopy - Will follow.
[2019-10-02] MEDS: Scopolamine 1.5 mg/72 hour Patch TD SCH (21:23)
[2019-10-03] MEDS: methylPREDNISolone Sod Succ 40 MG VIAL IVP SCH ×4 (00:23→17:26)
[2019-10-03 03:50] LABS: #Lymphocytes 0.6 thou/uL (1.20-3.40); #Monocytes 0.5 thou/uL (0.11-0.59); #Neutrophils 12.1 thou/uL (1.40-6.50); %Eosinophils 0.1 % (0.0-10.0); %Lymphocytes 4.6 % (21.0-51.0); %Monocytes 3.4 % (0.0-10.0); %Neutrophils 91.9 % (42.0-75.0); Hemoglobin 15.1 g/dL (12.0-16.0); Mean Corpuscular HGB CONC 31.6 g/dL (32.0-36.0); Mean Corpuscular Hemoglobin 31.2 pg (27.0-31.0); Mean Corpuscular Volume 98.8 fL (78.0-98.0); Mean Platelet Volume 8.5 fL (7.4-10.4); Platelet Count 184 thou/uL (130-400); RBC Distribution Width 16.7 % (11.5-14.5); Red Blood Cell (RBC) Count 4.83 mill/uL (4.20-5.40); White Blood Cell (WBC) Count 13.1 thou/uL (4.8-10.8)
[2019-10-03 04:13] LABS: BUN (Urea Nitrogen) 31 mg/dL (9.8-20.1); Calc. Creatinine Clearance 77 mL/min (70-130); Calcium 7.7 mg/dL (7.8-10.44); Estimated GFR-MDRD 51; Glucose 145 mg/dL (70-105)
[2019-10-03 04:22] LABS: Anion Gap 13 mmol/L (10-20); Carbon Dioxide 39 mmol/L (22-29); Chloride 96 mmol/L (98-107); Potassium 3.5 mmol/L (3.5-5.1); Sodium 144 mmol/L (136-145)
[2019-10-03] MEDS: Propofol 1,000 MG/100 ML VIAL IV PRN (05:18)
[2019-10-03] MEDS: Levothyroxine Sodium 200 MCG VIAL IVP SCH (05:23)
[2019-10-03 08:05] LABS: Actual Bicarbonate (HCO3a) 42.7 mEq/L (22-28); Base Excess (BEa) 15.3 mEq/L (-2.0 to +3.0); Calcium, Ionized 1.02 mmol/L (1.12-1.30); Carboxyhemoglobin (COHb) 1.6 gm% (0.0-3.0); Hemoglobin (Hb) 15.8 g/dL (12.0-16.0); Potassium - ABG Lab 3.39 mmol/L (3.70-5.30); pH, Arterial 7.46 (7.35-7.45)
[2019-10-03] MEDS ORDERED: DC Sedation Protocol FS ONE (08:25)
--- NOTE | 2019-10-03 08:27 | PRG ---
DATE OF SERVICE: 10/03/2019 SUBJECTIVE: Luiz Abdul is a 53-year-old female, agitated this morning. Crying to the nurses. She is trying to jump off the bed. OBJECTIVE: VITAL SIGNS: Pulse is 79, blood pressure 139/80, saturations are 93%, respirations 18. GENERAL: She is awake, responsive. She has diastolic dysfunction. CHEST: Decreased breath sounds. No wheezing. CARDIAC: Normal S1 and S2. No gallops. ABDOMEN: No masses. DIAGNOSTIC DATA: X-ray shows improvement. The right lower lung atelectatic area is better. There is some cardiomegaly with possibly left pleural effusion. I's and O's have been consistently even, otherwise. PO2 of 62, pCO2 of 54, pH 7.48, PEEP of 5, rate of 4. 15,000 of white cell count. IMPRESSION: 1. Respiratory failure. 2. Congestive heart failure, diastolic. 3. Pneumonia. 4. Hypothyroidism. 5. Severe deconditioning. 6. Morbid obesity. PLAN: Diagnostic therapeutic bronchoscopy is to be performed. This morning, we will try and hopefully wean and extubate shortly thereafter. Continue Synthroid. This is one-half hour of critical care time excluding the bronchoscopy. Job ID: [id number]
[2019-10-03 08:28] LABS: CO2 Tension 61.5 mmHg (35.0-45.0)
[2019-10-03 08:29] LABS: ALV-art Gradient 189.975 (0-20); Puncture Site L.R.
--- NOTE | 2019-10-03 08:30 | RAD ---
EXAM: CHEST ONE VIEW HISTORY: On ventilator. COMPARISON: 10/02/2019 FINDINGS: Endotracheal tube and nasogastric tubes remain in place. Cardiac silhouette is enlarged. There is inc reased density at the left lung base, but the left lung base is suboptimally evaluated due to the overlying cardiac silhouette. Findings may be related to infiltrate, pleural fluid, and/or atelectasi s. Parenchymal densities are seen at the right lung base similar to prior exam and may be related to persistent atelectasis. However, pneumonitis right lung base cannot be entirely excluded. No other interval change. IMPRESSION: 1. Interval increase in density left lung base partially obscured the cardiac silhouette. Findings co uld be related to infiltrate secondary to pneumonia, left pleural effusion, and/or atelectasis. 2. Stable airspace opacities right lung base which could be related to persistent atelectasis, pneumo nitis is a possibility. Continued follow-up is recommended.
[2019-10-03] MEDS ORDERED: Furosemide 40 MG/4 ML VIAL SLOW IVP SCH (09:00)
--- NOTE | 2019-10-03 09:03 | OP ---
DATE OF PROCEDURE: 10/03/2019 This morning she underwent a diagnostic bronchoscopy because the right lung was atelectatic. DESCRIPTION OF PROCEDURE: Informed consent, bite block in place. Flexible bronchoscope was then passed by the endotracheal tube. Distal giovani was occluded with thick tenacious mucus, is suctioned lavaged. Thereafter, the giovani was inspected was relatively clear. Right lung was inspected initially. There was edema of the basilar segments level of her mucus, but no significant endobronchial disease or blood or pus. This was lavaged until completely clear. Left lung inspected thereafter, is unremarkable. Both lungs were lavaged with normal saline until completely clear. The patient tolerated the procedure well. She was extubated shortly thereafter and has tolerated the extubation well. Please note, she is going to require nocturnal CPAP, BiPAP. She probably is going to need outpatient sleep study. In the meantime, we are going to place her on high-flow daytime, nocturnal ventilation nighttime. Speech will be consulted regarding input from diet. Otherwise, she tolerated the extubation and the bronchoscopy lavage. Job ID: [id number]
[2019-10-03] MEDS: Enoxaparin Sodium 40 MG/0.4 ML SYRINGE SC SCH (10:34)
[2019-10-03] MEDS: Famotidine/PF 20 mg/2ml Vial SLOW IVP SCH (10:34)
[2019-10-03] MEDS: Cefepime 1 GM in Sodium Chloride 0.9% 100 ML IVPB SCH ×2 (10:35→21:53)
[2019-10-03] MEDS: Sodium Chloride 0.9% 1,000 ML IV SCH (10:36)
--- NOTE | 2019-10-03 17:58 | PDOC.CPN ---
- Subjective Date: 10/03/19 Time: 17:56 Interval history: She is now extubated after her bronchoscopy showed a mucus plug which was cleared. - Review of Systems General: denies: fever/chills, weight/appetite/sleep changes, night sweats, fatigue Respiratory: denies: cough, congestion, shortness of breath, exercise intolerance Cardiovascular: denies: chest pain, palpitation, edema, paroxysmal nocturnal dyspnea, orthopnea Gastrointestinal: denies: nausea, vomiting, diarrhea, constipation, abd pain, GI bleeding Musculoskeletal: denies: pain, tenderness, stiffness, swelling, arthritis/ arthralgias Neurological: denies: numbness, syncope, seizure, weakness - Objective Allergies/Adverse Reactions: Allergies Allergy/AdvReac Type Severity Reaction Status Date / Time No Known Allergies Allergy Unverified 09/30/19 14:51 Visit Medications: Current Medications Acetaminophen (Tylenol) 650 mg PO Q4H PRN PRN Reason: Headache/Fever/Mild Pain (1-3) Acetaminophen (Tylenol) [address] Q4H PRN PRN Reason: Headache/Fever/Mild Pain (1-3) Albuterol/Ipratropium (Duoneb) 3 ml NEB [id number] [facility] Last Admin: 10/03/19 13:34 Dose: 3 ml Enoxaparin Sodium (Lovenox) 40 mg SC 0900 [facility] Last Admin: 10/03/19 10:34 Dose: 40 mg Famotidine (Pepcid) 20 mg PO Q12HR RAHEEL Furosemide (Lasix) 40 mg SLOW IVP DAILY [facility] Last Admin: 10/03/19 10:34 Dose: 40 mg Hydralazine HCl (Apresoline) 10 mg SLOW IVP Q4H PRN PRN Reason: SBP Greater Than 180 Last Admin: 10/01/19 06:00 Dose: 10 mg Nitroglycerin/Dextrose (Nitroglycerin 50 Mg/250 Ml Bot) 250 mls @ 0 mls/hr IVPB INF RAHEEL; Protocol Cefepime HCl 1 gm/ Sodium (Chloride) 100 mls @ 200 mls/hr IVPB Q12HR RAHEEL Last Admin: 10/03/19 10:35 Dose: 100 mls Potassium Chloride 40 meq/ (Sodium Chloride) 270 mls @ 135 mls/hr IVPB ASDIR PRN PRN Reason: FOR SERUM K+ 2.5 - 3.5 Potassium Chloride 40 meq/ (Device) 100 mls @ 50 mls/hr IVPB ASDIR PRN PRN Reason: FOR SERUM K+ 2.5 - 3.5 Magnesium Sulfate 1 gm/ Sodium (Chloride) 102 mls @ 102 mls/hr IV PRN PRN PRN Reason: MAG LEVEL 1.4 - 2.0 Magnesium Sulfate 2 gm/ Device 50 mls @ 50 mls/hr IVPB ASDIR PRN PRN Reason: MAGNESIUM < 1.4 Potassium Phosphate 9 mmol/ (Sodium Chloride) 103 mls @ 25.75 mls/hr IVPB ASDIR PRN PRN Reason: Phosphate 1.0-1.8 Potassium Phosphate 12 mmol/ (Sodium Chloride) 254 mls @ 63.5 mls/hr IV ASDIR PRN PRN Reason: Serum phosphate 0.5-0.9 Potassium Phosphate 15 mmol/ (Sodium Chloride) 255 mls @ 63.75 mls/hr IV ASDIR PRN PRN Reason: Serum Phos < 0.5 Sodium Chloride (Normal Saline 0.9%) 1,000 mls @ 50 mls/hr IV .Q20H [facility] Last Admin: 10/03/19 10:36 Dose: 1,000 mls Levothyroxine Sodium (Synthroid) 200 mcg PO 0600 [facility] Magnesium Oxide (Magnesium Oxide) 400 mg PO BIDPRN PRN PRN Reason: FOR SERUM MAG 1.4 - 2.0 Magnesium Oxide (Magnesium Oxide) 800 mg PO PRN PRN PRN Reason: FOR SERUM MAG < 1.4 Methylprednisolone Sodium Succinate (Solu-Medrol) 40 mg IVP Q6HR [facility] Last Admin: 10/03/19 17:26 Dose: 40 mg Miscellaneous Medication (Phos-Nak) 1 pkt PO TIDPRN PRN PRN Reason: FOR PHOS LEVEL 1.0 - 1.8 Miscellaneous Medication (Phos-Nak) 2 pkt PO TIDPRN PRN PRN Reason: FOR PHOS LEVEL 0.5 - 1.0 Ccu Electrolyte (Replacement Protocol) 0 each FS PRN PRN PRN Reason: FOR ELECTROLYTE REPLACEMENT Ondansetron HCl (Zofran Odt) 4 mg PO Q6H PRN PRN Reason: Nausea/Vomiting Ondansetron HCl (Zofran) 4 mg IVP Q6H PRN PRN Reason: Nausea/Vomiting Potassium Chloride (K-Dur) 40 meq PO ASDIR PRN PRN Reason: FOR SERUM K+ 2.5 - 3.5 Potassium Chloride (Klor-Con) 40 meq PER TUBE ASDIR PRN PRN Reason: FOR SERUM K+ 2.5-3.5 Last Admin: 10/02/19 04:49 Dose: 40 meq Scopolamine (Transderm Scop) 1.5 mg TD Q3D RAHEEL Last Admin: 10/02/19 21:23 Dose: 1.5 mg Senna/Docusate Sodium (Senokot S) 2 tab PO BID PRN PRN Reason: Constipation Vital Signs & Weight: Vital Signs Temp Pulse Pulse Pulse Resp BP BP 10/03/19 16:00 99.1 F 10/03/19 14:00 75 81 159/76 H 10/03/19 13:34 66 23 H 10/03/19 12:00 99.1 F 10/03/19 08:30 10/03/19 08:26 61 22 H 10/03/19 08:20 10/03/19 08:00 22 H 10/03/19 07:49 74 139/80 10/03/19 07:45 79 20 10/03/19 07:00 98.8 F 10/03/19 06:00 11 L BP Pulse Ox Pulse Ox Pulse Ox 10/03/19 16:00 10/03/19 14:00 168/109 H 96 92 L 10/03/19 13:34 96 10/03/19 12:00 10/03/19 08:30 96 10/03/19 08:26 93 L 10/03/19 08:20 93 L 10/03/19 08:00 10/03/19 07:49 10/03/19 07:45 93 L 10/03/19 07:00 10/03/19 06:00 Admit Weight 214 lb Weight 226 lb 13.69 oz - Physical Exam General: alert & oriented x3 HEENT: mucus membranes moist Neck: supple neck Cardiac: regular rate and rhythm Lungs: normal breath sounds Neuro: grossly intact Abdomen: active bowel sounds Extremities: no edema Skin: clear Musculoskeletal: no pain - Labs Result Diagrams: 10/03/19 03:14 10/03/19 03:14 Troponin/CKMB Troponin I Less than 0.010 ng/mL (< 0.028) 09/30/19 21:35 - Telemetry Sinus rhythms and dysrhythmias: sinus rhythm - Assessment/Plan Assessment/Plan: 1. Acute hypoxic hypercapnic respiratory insufficiency. 2. Acute on chronic diastolic heart failure, improved. 3. HTN 4. Mucus plug. PLAN: - Much better after mucus plug removed during bronchoscopy - Will sign off. Please call with any questions.
--- NOTE | 2019-10-03 18:01 | PDOC.HOSPP ---
- Subjective Encounter Date: 10/03/19 Encounter Time: 18:00 Subjective: f/u for resp failure s/p mech ventilation and mucus plug evacuation with bronchoscopy. Remains on high-flow NC. - Objective Vital Signs & Weight: Vital Signs (12 hours) Temp Pulse Pulse Pulse Resp BP BP 10/03/19 16:00 99.1 F 10/03/19 14:00 75 81 159/76 H 10/03/19 13:34 66 23 H 10/03/19 12:00 99.1 F 10/03/19 08:30 10/03/19 08:26 61 22 H 10/03/19 08:20 10/03/19 08:00 22 H 10/03/19 07:49 74 139/80 10/03/19 07:45 79 20 10/03/19 07:00 98.8 F 10/03/19 06:00 11 L BP Pulse Ox Pulse Ox Pulse Ox 10/03/19 16:00 10/03/19 14:00 168/109 H 96 92 L 10/03/19 13:34 96 10/03/19 12:00 10/03/19 08:30 96 10/03/19 08:26 93 L 10/03/19 08:20 93 L 10/03/19 08:00 10/03/19 07:49 10/03/19 07:45 93 L 10/03/19 07:00 10/03/19 06:00 Weight Admit Weight 214 lb Weight 226 lb 13.69 oz Most Recent Monitor Data Heart Rate from ECG 70 NIBP 143/95 NIBP BP-Mean 111 Respiration from ECG 22 SpO2 90 I&O: 10/02/19 10/03/19 10/04/19 06:59 06:59 06:59 Intake Total 1083 1521.1 351.3 Output Total 3005 1482 1305 Balance -1922 39.1 -953.7 Result Diagrams: 10/03/19 03:14 10/03/19 03:14 Additional Labs: Microbiology 09/30/19 16:02 Venous blood - Right Arm Blood Culture - Preliminary Specimen has been received and culture in progress. No Growth to date. 09/30/19 16:02 Venous blood - Left Arm Blood Culture - Preliminary Specimen has been received and culture in progress. No Growth to date. 01/27/20 14:55 Urine adams catheter Urine Culture - Preliminary NO GROWTH AT 24 HOURS Laboratory Tests 09/24/19 09/30/19 09/30/19 09:17 10:38 10:38 WBC MCV Potassium 3.5 3.6 Troponin I B-Natriuretic Peptide 179.3 H 09/30/19 09/30/19 09/30/19 15:13 15:13 15:13 WBC 6.9 MCV 101.0 H Potassium Troponin I 0.013 B-Natriuretic Peptide 156.2 H 09/30/19 09/30/19 18:38 21:35 WBC MCV Potassium Troponin I Less than 0.010 Less than 0.010 B-Natriuretic Peptide Radiology Reviewed by me: Yes (PCXR - LLL atelectasis) EKG Reviewed by me: Yes (Tele - SR) Hospitalist ROS - Medication Medications: Active Medications Generic Name Dose Route Start Last Admin Trade Name Freq PRN Reason Stop Dose Admin Albuterol/Ipratropium 3 ml 10/01/19 13:00 10/03/19 13:34 Duoneb NEB 3 ml [id number] RAEHEL Administration Enoxaparin Sodium 40 mg 10/01/19 09:00 10/03/19 10:34 Lovenox SC 40 mg 0900 RAHEEL Administration Furosemide 40 mg 10/03/19 09:00 10/03/19 10:34 Lasix SLOW IVP 40 mg DAILY RAHEEL Administration Hydralazine HCl 10 mg 09/30/19 18:17 10/01/19 06:00 Apresoline SLOW IVP 10 mg Q4H PRN Administration SBP Greater Than 180 Cefepime HCl 1 gm/ Sodium 100 mls @ 200 mls/hr 10/01/19 09:00 10/03/19 10:35 Chloride IVPB 100 mls Q12HR RAHEEL Administration Sodium Chloride 1,000 mls @ 50 mls/hr 10/03/19 10:00 10/03/19 10:36 Normal Saline 0.9% IV 1,000 mls .Q20H RAHEEL Administration Methylprednisolone Sodium Succinate 40 mg 10/01/19 12:00 10/03/19 17:26 Solu-Medrol IVP 40 mg Q6HR RAHEEL Administration Potassium Chloride 40 meq 10/01/19 09:22 10/02/19 04:49 Klor-Con PER TUBE 40 meq ASDIR PRN Administration FOR SERUM K+ 2.5-3.5 Scopolamine 1.5 mg 10/02/19 19:00 10/02/19 21:23 Transderm Scop TD 1.5 mg Q3D RAHEEL Administration - Exam General Appearance: NAD, awake alert Eye: PERRL, anicteric sclera ENT: normocephalic atraumatic, no oropharyngeal lesions ENT - other findings: high-flow NC in place Neck: supple, symmetric, no JVD Heart: RRR, no murmur, no gallops, no rubs, normal peripheral pulses Respiratory - other findings: diminished in bases Gastrointestinal: soft, non-tender, non-distended, normal bowel sounds, no palpable masses Extremities: no cyanosis, no clubbing, no edema Skin: normal turgor, no lesions Neurological: cranial nerve grossly intact, no new deficit Musculoskeletal: normal tone, normal strength Psychiatric: normal affect, A&O x 3 Hosp A/P (1) Acute respiratory failure with hypoxia and hypercapnia Code(s): J96.01 - ACUTE RESPIRATORY FAILURE WITH HYPOXIA; J96.02 - ACUTE RESPIRATORY FAILURE WITH HYPERCAPNIA Status: Acute Plan: s/p mech ventilation and now extubated today after evacuation of mucus plug during bronchoscopy, continue pulmonary support with high-flow NC (2) Acute on chronic diastolic CHF (congestive heart failure) Code(s): I50.33 - ACUTE ON CHRONIC DIASTOLIC (CONGESTIVE) HEART FAILURE Status : Acute Plan: Continue Lasix 40mg IV daily, serial I/O's, daily weight (3) ERIKA (obstructive sleep apnea) Code(s): G47.33 - OBSTRUCTIVE SLEEP APNEA (ADULT) (PEDIATRIC) Status: Chronic (4) Tobacco abuse Code(s): Z72.0 - TOBACCO USE Status: Chronic Plan: Tobacco cessation resources (5) COPD exacerbation Code(s): J44.1 - CHRONIC OBSTRUCTIVE PULMONARY DISEASE W (ACUTE) EXACERBATION Status: Acute Plan: Continue Solumedrol/Cefepime/Duonebs (6) BECKY (acute kidney injury) Code(s): N17.9 - ACUTE KIDNEY FAILURE, UNSPECIFIED Status: Acute Plan: Avoid nephrotoxic meds and limit contrast exposure (7) Morbid obesity Code(s): E66.01 - MORBID (SEVERE) OBESITY DUE TO EXCESS CALORIES Status: Chronic - Plan continue antibiotics, PT/OT, social media marketing manager, respiratory therapy, DVT proph w/ SCDs Continue critical supportive mgmt O2 via high-flow NC Continue Solumedrol/Duonebs/Cefepime Continue Lasix IV 40mg daily Tobacco cessation resources AM lab: BMP, CBC, TSH
[2019-10-03] MEDS: Famotidine 20 MG TAB PO SCH (21:52)
[2019-10-04] MEDS: methylPREDNISolone Sod Succ 40 MG VIAL IVP SCH ×2 (01:18→05:58)
[2019-10-04] MEDS: Levothyroxine Sodium 100 MCG TAB PO SCH (05:55)
[2019-10-04] MEDS: Sodium Chloride 0.9% 1,000 ML IV SCH (06:07)
[2019-10-04 06:28] LABS: Mean Corpuscular HGB CONC 31.2 g/dL (32.0-36.0); Mean Corpuscular Hemoglobin 31.1 pg (27.0-31.0); Mean Corpuscular Volume 99.6 fL (78.0-98.0); Mean Platelet Volume 8.7 fL (7.4-10.4); Platelet Count 204 thou/uL (130-400); RBC Distribution Width 16.4 % (11.5-14.5); Red Blood Cell (RBC) Count 5.16 mill/uL (4.20-5.40); White Blood Cell (WBC) Count 12.6 thou/uL (4.8-10.8)
[2019-10-04 06:44] LABS: BUN (Urea Nitrogen) 24 mg/dL (9.8-20.1); Calc. Creatinine Clearance 111 mL/min (70-130); Calcium 8.1 mg/dL (7.8-10.44); Estimated GFR-MDRD 74; Glucose 100 mg/dL (70-105)
[2019-10-04 06:53] LABS: Anion Gap 14 mmol/L (10-20); Carbon Dioxide 37 mmol/L (22-29); Chloride 97 mmol/L (98-107); Potassium 3.7 mmol/L (3.5-5.1); Sodium 144 mmol/L (136-145)
[2019-10-04 06:54] LABS: Band 4 % (5-11); MDiff Complete? YES; Monocytes 3 % (0-10); Neutrophil 92 % (42-75); Reactive Lymphocytes 1 % (0-10)
--- NOTE | 2019-10-04 08:14 | RAD ---
SINGLE VIEW OF THE CHEST: COMPARISON: 10/03/2019. HISTORY: Ventilated patient with respiratory failure. FINDINGS: A single view of the chest shows an enlarged cardiomediastinal silhouette. Low lung volumes are seen . Endotracheal tube and NG tube have been removed. There is obscurity of the bilateral hemidiaphrag ms which may represent small pleural effusions and adjacent atelectasis. IMPRESSION: 1. Stable exam status post extubation. 2. Bilateral small pleural effusions with adjacent atelectasis. 3. Stable cardiomegaly. POS: CET
--- NOTE | 2019-10-04 08:38 | PRG ---
DATE OF SERVICE: 10/04/2019 SUBJECTIVE: Morbidly obese female, who is severely hypothyroid. This morning, she says she is doing better. OBJECTIVE: VITAL SIGNS: Blood pressure is 187/99, pulse 128, respiratory rate 18, and afebrile. I's and O's have been consistently ahead. CHEST: Decreased breath sounds. No wheezing. CARDIAC: Normal S1, S2. No gallops. ABDOMEN: No masses. LABORATORY DATA: White count 12,000, H and H 16 and 51, platelet count 204. Bicarb is 37. BUN and creatinine, normal. Sodium 144. X-ray shows worsening bilateral pleural effusion. ASSESSMENT AND PLAN: 1. Bronchoscopy yesterday did not reveal a large mucus plug. Respiratory failure. Bilateral pleural effusion. 2. Hypothyroidism. 3. Hypertension. Increase diuretics for several days. I have added Diamox. PT. Supportive care. Continue observation in the ICU for another 24 to 48 hours. We will follow. Job ID: [id number]
[2019-10-04] MEDS: acetaZOLAMIDE Sodium 500 mg Vial IVP SCH (09:30)
[2019-10-04] MEDS: Cefdinir 300 MG CAP PO SCH ×2 (09:30→21:46)
[2019-10-04] MEDS: Furosemide 40 MG/4 ML VIAL SLOW IVP SCH ×2 (09:30→21:47)
[2019-10-04] MEDS: Enoxaparin Sodium 40 MG/0.4 ML SYRINGE SC SCH (09:30)
[2019-10-04] MEDS: cloNIDine 0.2 MG TAB PO SCH ×2 (09:31→21:47)
[2019-10-04] MEDS: Famotidine 20 MG TAB PO SCH ×2 (09:31→21:47)
[2019-10-04] MEDS: Amlodipine 5 MG TAB PO SCH (09:31)
[2019-10-04] MEDS ORDERED: Sterile Water 10 ML ONE (09:55)
[2019-10-04] MEDS: hydrALAZINE 20 MG/ML VIAL SLOW IVP PRN (10:33)
--- NOTE | 2019-10-04 20:30 | PDOC.HOSPP ---
- Subjective Encounter Date: 10/04/19 Encounter Time: 11:00 Subjective: patient seen on f/u for resp s/p extubation currently on high flow 02, patient refers she is feeling fine denies chest pain fever chills n/v, states her sob is stable and improving - Objective Vital Signs & Weight: Vital Signs (12 hours) Temp Pulse Resp BP Pulse Ox 10/04/19 18:13 59 L 20 98 10/04/19 16:00 99.0 F 10/04/19 13:22 67 20 95 10/04/19 12:00 98.7 F 10/04/19 10:33 77 200/103 H 10/04/19 09:31 67 183/96 H Weight Admit Weight 214 lb Weight 228 lb 9.92 oz Most Recent Monitor Data Heart Rate from ECG 57 NIBP 157/80 NIBP BP-Mean 105 Respiration from ECG 19 SpO2 98 I&O: 10/03/19 10/04/19 10/05/19 06:59 06:59 06:59 Intake Total 1521.1 2397.3 1479 Output Total 1482 1905 1880 Balance 39.1 492.3 -401 Result Diagrams: 10/04/19 05:48 10/04/19 05:48 Hospitalist ROS - Review of Systems All other systems reviewed; all pertinent +/- noted in HPI/Subj - Medication Medications: Active Medications Generic Name Dose Route Start Last Admin Trade Name Freq PRN Reason Stop Dose Admin Acetazolamide Sodium 500 mg 10/04/19 09:00 10/04/19 09:30 Diamox IVP 10/07/19 09:01 500 mg DAILY RAHEEL Administration Albuterol/Ipratropium 3 ml 10/01/19 13:00 10/04/19 18:13 Duoneb NEB 3 ml [id number] RAHEEL Administration Amlodipine Besylate 5 mg 10/04/19 09:00 10/04/19 09:31 Norvasc PO 5 mg DAILY RAHEEL Administration Cefdinir 300 mg 10/04/19 09:00 10/04/19 09:30 Omnicef PO 10/09/19 09:01 300 mg BID RAHEEL Administration Clonidine 0.2 mg 10/04/19 09:00 10/04/19 09:31 Catapres PO 0.2 mg BID RAHEEL Administration Enoxaparin Sodium 40 mg 10/01/19 09:00 10/04/19 09:30 Lovenox SC 40 mg 0900 RAHEEL Administration Famotidine 20 mg 10/03/19 21:00 10/04/19 09:31 Pepcid PO 20 mg Q12HR RAHEEL Administration Furosemide 40 mg 10/04/19 09:00 10/04/19 09:30 Lasix SLOW IVP 40 mg BID RAHEEL Administration Hydralazine HCl 10 mg 09/30/19 18:17 10/04/19 10:33 Apresoline SLOW IVP 10 mg Q4H PRN Administration SBP Greater Than 180 Levothyroxine Sodium 200 mcg 10/04/19 06:00 10/04/19 05:55 Synthroid PO 200 mcg 0600 RAHEEL Administration Potassium Chloride 40 meq 10/01/19 09:22 10/02/19 04:49 Klor-Con PER TUBE 40 meq ASDIR PRN Administration FOR SERUM K+ 2.5-3.5 Scopolamine 1.5 mg 10/02/19 19:00 10/02/19 21:23 Transderm Scop TD 1.5 mg Q3D RAHEEL Administration - Exam General Appearance: awake alert Eye: PERRL, anicteric sclera ENT: normocephalic atraumatic, no oropharyngeal lesions Neck: supple, symmetric, no JVD Heart: RRR, no murmur, no gallops Respiratory: CTAB, no wheezes, no rales, no ronchi Gastrointestinal: soft, non-tender, non-distended Extremities: no cyanosis, no clubbing Skin: normal turgor, no lesions Neurological: cranial nerve grossly intact, normal sensation to touch Musculoskeletal: normal tone, normal strength Psychiatric: normal affect, normal behavior, A&O x 3 Hosp A/P (1) Acute respiratory failure with hypoxia and hypercapnia Code(s): J96.01 - ACUTE RESPIRATORY FAILURE WITH HYPOXIA; J96.02 - ACUTE RESPIRATORY FAILURE WITH HYPERCAPNIA Status: Acute (2) BECKY (acute kidney injury) Code(s): N17.9 - ACUTE KIDNEY FAILURE, UNSPECIFIED Status: Acute (3) Acute on chronic diastolic CHF (congestive heart failure) Code(s): I50.33 - ACUTE ON CHRONIC DIASTOLIC (CONGESTIVE) HEART FAILURE Status : Acute (4) COPD exacerbation Code(s): J44.1 - CHRONIC OBSTRUCTIVE PULMONARY DISEASE W (ACUTE) EXACERBATION Status: Acute (5) Morbid obesity Code(s): E66.01 - MORBID (SEVERE) OBESITY DUE TO EXCESS CALORIES Status: Chronic - Plan -continue with high flow 02 -last picker consulted, following recommendations - continue diuresis w lasix -continue dual nebs, steroids -continue abx -continue home meds for chronic conditions
[2019-10-05 04:37] LABS: #Lymphocytes 2.3 thou/uL (1.20-3.40); #Monocytes 0.6 thou/uL (0.11-0.59); #Neutrophils 6.6 thou/uL (1.40-6.50); %Basophils 0.1 % (0.0-1.0); %Eosinophils 0.1 % (0.0-10.0); %Lymphocytes 23.7 % (21.0-51.0); %Monocytes 6.7 % (0.0-10.0); %Neutrophils 69.4 % (42.0-75.0); Hemoglobin 16.8 g/dL (12.0-16.0); Mean Corpuscular HGB CONC 30.6 g/dL (32.0-36.0); Mean Corpuscular Hemoglobin 30.6 pg (27.0-31.0); Mean Platelet Volume 8.1 fL (7.4-10.4); Platelet Count 204 thou/uL (130-400); RBC Distribution Width 16.3 % (11.5-14.5); White Blood Cell (WBC) Count 9.5 thou/uL (4.8-10.8)
[2019-10-05 04:38] LABS: BUN (Urea Nitrogen) 21 mg/dL (9.8-20.1); Calc. Creatinine Clearance 122 mL/min (70-130); Calcium 8.4 mg/dL (7.8-10.44); Estimated GFR-MDRD 83; Glucose 82 mg/dL (70-105)
[2019-10-05 04:47] LABS: Anion Gap 14 mmol/L (10-20); Carbon Dioxide 37 mmol/L (22-29); Chloride 94 mmol/L (98-107); Potassium 3.1 mmol/L (3.5-5.1); Sodium 142 mmol/L (136-145)
[2019-10-05] MEDS: Levothyroxine Sodium 100 MCG TAB PO SCH (05:54)
[2019-10-05 06:36] VITALS: BMI 44.6
[2019-10-05] MEDS: cloNIDine 0.2 MG TAB PO SCH ×2 (08:51→20:17)
[2019-10-05] MEDS: Cefdinir 300 MG CAP PO SCH ×2 (08:51→20:16)
[2019-10-05] MEDS: Famotidine 20 MG TAB PO SCH ×2 (08:51→20:16)
[2019-10-05] MEDS: Amlodipine 5 MG TAB PO SCH (08:53)
[2019-10-05] MEDS: Furosemide 40 MG/4 ML VIAL SLOW IVP SCH (08:54)
[2019-10-05] MEDS: acetaZOLAMIDE Sodium 500 mg Vial IVP SCH (08:54)
[2019-10-05] MEDS: Sterile Water 10 ML ONE (08:55)
[2019-10-05] MEDS: Enoxaparin Sodium 40 MG/0.4 ML SYRINGE SC SCH (09:01)
--- NOTE | 2019-10-05 10:58 | PDOC.HOSPP ---
- Subjective Encounter Date: 10/05/19 Encounter Time: 11:50 Subjective: Patient denies complaints. Has been asking if she can eat something besides puree so nurse having ST come reevaluate. Mother doesn't have med list with her but will go home and get it. - Objective Vital Signs & Weight: Vital Signs (12 hours) Temp Pulse Resp BP Pulse Ox 10/05/19 08:53 53 L 160/85 H 10/05/19 08:51 160/85 H 10/05/19 08:04 51 L 20 96 10/05/19 08:00 99 10/05/19 07:00 98.6 F 10/05/19 04:00 98.7 F 10/05/19 02:07 52 L 16 94 L 10/05/19 00:02 53 L 15 95 Weight Admit Weight 214 lb Weight 228 lb 6.382 oz Most Recent Monitor Data Heart Rate from ECG 50 NIBP 160/86 NIBP BP-Mean 110 Respiration from ECG 18 SpO2 98 I&O: 10/04/19 10/05/19 10/06/19 06:59 06:59 06:59 Intake Total 2397.3 1973 489 Output Total 1905 3145 630 Balance 492.3 -1172 -141 Result Diagrams: 10/05/19 04:02 10/05/19 04:02 Hospitalist ROS - Review of Systems Constitutional: denies: fever, chills Respiratory: denies: cough, shortness of breath Cardiovascular: denies: chest pain, palpitations, orthopnea Gastrointestinal: denies: nausea, vomiting, abdominal pain, diarrhea, constipation Genitourinary: denies: dysuria, hematuria - Medication Medications: Active Medications Generic Name Dose Route Start Last Admin Trade Name Freq PRN Reason Stop Dose Admin Acetazolamide Sodium 500 mg 10/04/19 09:00 10/05/19 08:54 Diamox IVP 10/07/19 09:01 500 mg DAILY RAHEEL Administration Albuterol/Ipratropium 3 ml 10/01/19 13:00 10/05/19 08:04 Duoneb NEB 3 ml [id number] RAHEEL Administration Amlodipine Besylate 5 mg 10/04/19 09:00 10/05/19 08:53 Norvasc PO 5 mg DAILY RAHEEL Administration Cefdinir 300 mg 10/04/19 09:00 10/05/19 08:51 Omnicef PO 10/09/19 09:01 300 mg BID RAHEEL Administration Clonidine 0.2 mg 10/04/19 09:00 10/05/19 08:51 Catapres PO 0.2 mg BID RAHEEL Administration Enoxaparin Sodium 40 mg 10/01/19 09:00 10/05/19 09:01 Lovenox SC 40 mg 0900 RAHEEL Administration Famotidine 20 mg 10/03/19 21:00 10/05/19 08:51 Pepcid PO 20 mg Q12HR RAHEEL Administration Furosemide 40 mg 10/04/19 09:00 10/05/19 08:54 Lasix SLOW IVP 40 mg BID RAHEEL Administration Hydralazine HCl 10 mg 09/30/19 18:17 10/04/19 10:33 Apresoline SLOW IVP 10 mg Q4H PRN Administration SBP Greater Than 180 Levothyroxine Sodium 200 mcg 10/04/19 06:00 10/05/19 05:54 Synthroid PO 200 mcg 0600 RAHEEL Administration Potassium Chloride 40 meq 10/01/19 09:22 10/05/19 08:54 K-Dur PO 40 meq ASDIR PRN Administration FOR SERUM K+ 2.5 - 3.5 Potassium Chloride 40 meq 10/01/19 09:22 10/02/19 04:49 Klor-Con PER TUBE 40 meq ASDIR PRN Administration FOR SERUM K+ 2.5-3.5 Scopolamine 1.5 mg 10/02/19 19:00 10/02/19 21:23 Transderm Scop TD 1.5 mg Q3D RAHEEL Administration - Exam General Appearance: NAD, awake alert ENT: moist mucosa Heart: RRR, no murmur, no gallops, no rubs Respiratory: CTAB, no wheezes, no rales, no ronchi Respiratory - other findings: on high flow oxygen and sating 99% Gastrointestinal: soft, non-tender, non-distended, normal bowel sounds Psychiatric: normal affect, normal behavior, A&O x 3 Hosp A/P (1) Acute respiratory failure with hypoxia and hypercapnia Code(s): J96.01 - ACUTE RESPIRATORY FAILURE WITH HYPOXIA; J96.02 - ACUTE RESPIRATORY FAILURE WITH HYPERCAPNIA Status: Acute (2) Acute on chronic diastolic CHF (congestive heart failure) Code(s): I50.33 - ACUTE ON CHRONIC DIASTOLIC (CONGESTIVE) HEART FAILURE Status : Acute (3) BECKY (acute kidney injury) Code(s): N17.9 - ACUTE KIDNEY FAILURE, UNSPECIFIED Status: Acute (4) COPD exacerbation Code(s): J44.1 - CHRONIC OBSTRUCTIVE PULMONARY DISEASE W (ACUTE) EXACERBATION Status: Acute (5) Morbid obesity Code(s): E66.01 - MORBID (SEVERE) OBESITY DUE TO EXCESS CALORIES Status: Chronic (6) ERIKA (obstructive sleep apnea) Code(s): G47.33 - OBSTRUCTIVE SLEEP APNEA (ADULT) (PEDIATRIC) Status: Chronic (7) Hypothyroidism Code(s): E03.9 - HYPOTHYROIDISM, UNSPECIFIED Status: Chronic - Plan -continue with high flow 02, wean as tolerated -manager practice consulted, following recommendations -continue diuresis w lasix -continue dual nebs, steroids -continue abx -continue levothyroxine high dose, TSH improving -will need SNF on discharge Obtain home med list
[2019-10-05] MEDS ORDERED: Potassium Chloride 20 MEQ TAB PO SCH (14:45)
--- NOTE | 2019-10-05 14:57 | PRG ---
DATE OF SERVICE: 10/05/2019 SERVICE: Pulmonary Medicine. INTERVAL HISTORY: The patient is doing great from respiratory standpoint. Denies any current chest discomfort, nausea, or vomiting. She is on high-flow nasal cannula, but no true attempts to wean her have been attempted. There has been no interval change to her condition. She indicates she is breathing comfortably. PHYSICAL EXAMINATION: VITAL SIGNS: Afebrile, pulse 56, blood pressure 132/76, respirations 15, saturation 94% on 3 L nasal cannula. GENERAL: The patient is awake and alert, in no apparent distress LUNGS: Wonderful air entry. Dependent crackles are noted. No prolonged expiratory phase or wheezing is appreciated. HEART: Normal rate, regular. ABDOMEN: Soft, nontender, nondistended. Bowel sounds are positive. MUSCULOSKELETAL: No cyanosis or clubbing. There is trace pitting in the bilateral lower extremities. NEUROLOGIC: Grossly nonfocal. LABORATORY DATA: WBC 9.5, hemoglobin 16.8 and up trending, and platelets 204, 000. Creatinine 0.86 and downtrending, BUN is excellent. Bicarb 37, chloride 94. Potassium 3.1. TSH is 18 currently. Blood cultures x2 and urine culture remain unremarkable. IMAGIN. Chest x-ray demonstrates low lung volumes accentuate interstitial markings. Cardiomegaly is present. There are likely a right-sided pleural effusion and possibly left-sided pleural effusion present. 2. Echocardiogram demonstrates normal ejection fraction with 1/3 diastolic dysfunction. Elevated RVSP. ASSESSMENT: 1. Acute hypoxic respiratory failure. 2. Acute on chronic diastolic heart failure. 3. Pleural effusions, bilateral. 4. Hypothyroidism. 5. Morbid obesity. 6. Obstructive sleep apnea, likely. DISCUSSION AND PLAN: The patient is approaching euvolemia. We will continue diuresing on a daily basis. Diamox will be continued for additional 24 hours. We will wean her off the high-flow nasal cannula. If she tolerates this, she will be considered for transition to the floor. Pulmonary will continue to follow. Job ID: [id number] [facility]
[2019-10-05] MEDS: Scopolamine 1.5 mg/72 hour Patch TD SCH (18:04)
[2019-10-05] MEDS: hydrALAZINE 20 MG/ML VIAL SLOW IVP PRN (20:17)
[2019-10-06 04:21] LABS: #Lymphocytes 1.4 thou/uL (1.20-3.40); #Monocytes 0.6 thou/uL (0.11-0.59); #Neutrophils 5.9 thou/uL (1.40-6.50); %Basophils 0.5 % (0.0-1.0); %Lymphocytes 17.7 % (21.0-51.0); %Monocytes 7.7 % (0.0-10.0); Hemoglobin 16.8 g/dL (12.0-16.0); Mean Corpuscular Hemoglobin 30.8 pg (27.0-31.0); Mean Corpuscular Volume 99.3 fL (78.0-98.0); Mean Platelet Volume 7.9 fL (7.4-10.4); Platelet Count 217 thou/uL (130-400); Red Blood Cell (RBC) Count 5.46 mill/uL (4.20-5.40); White Blood Cell (WBC) Count 7.9 thou/uL (4.8-10.8)
[2019-10-06 04:29] LABS: Phosphorus 2.7 mg/dL (2.3-4.7)
[2019-10-06 04:30] LABS: BUN (Urea Nitrogen) 17 mg/dL (9.8-20.1); Calc. Creatinine Clearance 122 mL/min (70-130); Calcium 8.8 mg/dL (7.8-10.44); Estimated GFR-MDRD 83; Glucose 82 mg/dL (70-105); Magnesium 2.3 mg/dL (1.6-2.6)
[2019-10-06 04:39] LABS: Anion Gap 15 mmol/L (10-20); Carbon Dioxide 36 mmol/L (22-29); Chloride 94 mmol/L (98-107); Potassium 3.2 mmol/L (3.5-5.1); Sodium 142 mmol/L (136-145)
[2019-10-06 04:58] LABS: Free T4 (Free Thyroxine) 0.73 ng/dL (0.70-1.48)
[2019-10-06] MEDS: Levothyroxine Sodium 100 MCG TAB PO SCH (05:25)
[2019-10-06] MEDS: hydrALAZINE 20 MG/ML VIAL SLOW IVP PRN (06:08)
[2019-10-06] MEDS ORDERED: Furosemide 40 MG/4 ML VIAL SLOW IVP SCH (09:00)
[2019-10-06] MEDS: Amlodipine 5 MG TAB PO SCH (09:27)
[2019-10-06] MEDS: Famotidine 20 MG TAB PO SCH (09:28)
[2019-10-06] MEDS: Cefdinir 300 MG CAP PO SCH ×2 (09:28→20:51)
[2019-10-06] MEDS: cloNIDine 0.2 MG TAB PO SCH ×2 (09:28→20:51)
[2019-10-06] MEDS: Enoxaparin Sodium 40 MG/0.4 ML SYRINGE SC SCH (09:29)
[2019-10-06] MEDS ORDERED: Sterile Water 10 ML ONE (09:31)
[2019-10-06] MEDS: Sterile Water 10 ML ONE (09:35)
[2019-10-06] MEDS: acetaZOLAMIDE Sodium 500 mg Vial IVP SCH (09:35)
[2019-10-06] MEDS ORDERED: AcetaZOLAMIDE 250 MG TAB PO SCH (11:30)
[2019-10-06] MEDS ORDERED: Furosemide 80 MG TAB PO SCH (11:30)
--- NOTE | 2019-10-06 12:00 | PRG ---
DATE OF SERVICE: 10/06/2019 SERVICE: Pulmonary Medicine. INTERVAL HISTORY: The patient is doing really well from respiratory standpoint. Breathing comfortably. No complaints of chest discomfort, fevers, or chills. Otherwise, there has been no interval change to her condition. She has been weaned down to 2 L nasal cannula. She did not require the BiPAP last night. PHYSICAL EXAMINATION: VITAL SIGNS: Afebrile; pulse 60; blood pressure 168/91; respirations 18; saturation 99%, currently on room air. GENERAL: The patient is awake and alert, in no apparent distress. LUNGS: Decent air entry. Minimal crackles are present. No prolonged expiratory phase or wheezing is appreciated. HEART: Normal rate, regular. ABDOMEN: Soft, nontender, and nondistended. Bowel sounds are positive. MUSCULOSKELETAL: No cyanosis or clubbing. There is 1+ pitting, which is improving. NEUROLOGIC: Grossly nonfocal. LABORATORY DATA: WBC 7.9, hemoglobin 16.8, and platelets 217,000. Sodium 142, potassium 3.2, and bicarb 36. Basic metabolic profile is otherwise unremarkable. Magnesium and phosphorous fall within normal limits. TSH is elevated and T3 and T4 are either within normal limits or low. Urinalysis is unremarkable. Blood cultures x2 and urine culture are negative. ASSESSMENT: 1. Acute hypoxic respiratory failure, resolving. 2. Acute on chronic diastolic heart failure. 3. Pleural effusions, bilateral. 4. Hypothyroidism. 5. Morbid obesity. 6. Obstructive sleep apnea, likely. DISCUSSION AND PLAN: The patient has gone 24 hours without the use of BiPAP. At this point, she is stable for transition out of the ICU to the medical unit. We will continue to diurese her, although more gently through time. Now that she is clearing her respiratory failure. Pulmonary will continue to follow. Dr. Van will resume coverage in the morning. Job ID: [id number]
[2019-10-06] MEDS: Potassium Chloride 20 MEQ TAB PO SCH ×2 (12:17→15:38)
--- NOTE | 2019-10-06 17:03 | PDOC.HOSPP ---
- Subjective Encounter Date: 10/06/19 Encounter Time: 12:25 Subjective: awake, responds well to verbal stimuli mother at bedside is on nasal canula, no complaints - Objective Vital Signs & Weight: Vital Signs (12 hours) Temp Pulse Resp BP Pulse Ox 10/06/19 16:00 98.5 F 10/06/19 12:55 67 20 10/06/19 12:00 98.8 F 10/06/19 10:38 99 10/06/19 09:28 174/48 H 10/06/19 09:27 63 174/48 H 10/06/19 08:00 96 10/06/19 07:14 70 14 95 10/06/19 07:00 98.9 F 10/06/19 06:08 53 L Weight Admit Weight 214 lb Weight 227 lb 11.8 oz Most Recent Monitor Data Heart Rate from ECG 65 NIBP 162/75 NIBP BP-Mean 104 Respiration from ECG 23 SpO2 99 I&O: 10/05/19 10/06/19 10/07/19 06:59 06:59 06:59 Intake Total 1973 969 969 Output Total 3145 2200 965 Balance -1172 -1231 4 Result Diagrams: 10/06/19 04:04 10/06/19 04:04 Hospitalist ROS - Medication Medications: Active Medications Generic Name Dose Route Start Last Admin Trade Name Freq PRN Reason Stop Dose Admin Albuterol/Ipratropium 3 ml 10/01/19 13:00 10/06/19 12:55 Duoneb NEB 3 ml [id number] RAHEEL Administration Amlodipine Besylate 5 mg 10/04/19 09:00 10/06/19 09:27 Norvasc PO 5 mg DAILY RAHEEL Administration Cefdinir 300 mg 10/04/19 09:00 10/06/19 09:28 Omnicef PO 10/09/19 09:01 300 mg BID RAHEEL Administration Clonidine 0.2 mg 10/04/19 09:00 10/06/19 09:28 Catapres PO 0.2 mg BID RAHEEL Administration Enoxaparin Sodium 40 mg 10/01/19 09:00 10/06/19 09:29 Lovenox SC 40 mg 0900 RAHEEL Administration Hydralazine HCl 10 mg 09/30/19 18:17 10/06/19 06:08 Apresoline SLOW IVP 10 mg Q4H PRN Administration SBP Greater Than 180 Levothyroxine Sodium 200 mcg 10/04/19 06:00 10/06/19 05:25 Synthroid PO 200 mcg 0600 RAHEEL Administration Scopolamine 1.5 mg 10/02/19 19:00 10/05/19 18:04 Transderm Scop TD 1.5 mg Q3D RAHEEL Administration - Exam General Appearance: NAD, awake alert Eye: PERRL, anicteric sclera ENT: no oropharyngeal lesions, moist mucosa Neck: supple, no JVD Heart: RRR, no murmur Respiratory: no wheezes, no rales, rhonchi Gastrointestinal: soft, non-tender, non-distended, normal bowel sounds Extremities: no cyanosis, no edema Neurological: cranial nerve grossly intact, no focal deficits Psychiatric: normal affect, A&O x 3 Hosp A/P (1) BECKY (acute kidney injury) Code(s): N17.9 - ACUTE KIDNEY FAILURE, UNSPECIFIED Status: Resolved (2) Acute on chronic diastolic CHF (congestive heart failure) Code(s): I50.33 - ACUTE ON CHRONIC DIASTOLIC (CONGESTIVE) HEART FAILURE Status : Acute (3) Acute respiratory failure with hypoxia and hypercapnia Code(s): J96.01 - ACUTE RESPIRATORY FAILURE WITH HYPOXIA; J96.02 - ACUTE RESPIRATORY FAILURE WITH HYPERCAPNIA Status: Acute (4) Hypothyroidism Code(s): E03.9 - HYPOTHYROIDISM, UNSPECIFIED Status: Chronic Qualifiers: Hypothyroidism type: unspecified Qualified Code(s): E03.9 - Hypothyroidism , unspecified (5) Morbid obesity Code(s): E66.01 - MORBID (SEVERE) OBESITY DUE TO EXCESS CALORIES Status: Chronic (6) ERIKA (obstructive sleep apnea) Code(s): G47.33 - OBSTRUCTIVE SLEEP APNEA (ADULT) (PEDIATRIC) Status: Suspected (7) Tobacco abuse Code(s): Z72.0 - TOBACCO USE Status: Chronic - Plan continue norvasc, clonidine, lasix, nebs, synthroid, omnicef is on nasal canula now PT/OT eval, oob to chair and amb as tolerated tx to med floor echo showed normal ef with lvh hemostable
[2019-10-07] MEDS: Levothyroxine Sodium 100 MCG TAB PO SCH (05:25)
[2019-10-07 06:18] LABS: Anion Gap 10 mmol/L (10-20); BUN (Urea Nitrogen) 14 mg/dL (9.8-20.1); Calc. Creatinine Clearance 119 mL/min (70-130); Calcium 8.5 mg/dL (7.8-10.44); Carbon Dioxide 36 mmol/L (22-29); Chloride 96 mmol/L (98-107); Estimated GFR-MDRD 81; Glucose 85 mg/dL (70-105); Potassium 3.5 mmol/L (3.5-5.1); Sodium 138 mmol/L (136-145)
[2019-10-07] MEDS ORDERED: AcetaZOLAMIDE 250 MG TAB PO SCH ×2 (09:00→11:15)
[2019-10-07] MEDS: cloNIDine 0.2 MG TAB PO SCH ×2 (09:48→20:44)
[2019-10-07] MEDS: Furosemide 40 MG TAB PO SCH (09:48)
[2019-10-07] MEDS: Amlodipine 5 MG TAB PO SCH (09:48)
[2019-10-07] MEDS: Cefdinir 300 MG CAP PO SCH ×2 (09:48→20:44)
[2019-10-07] MEDS: Enoxaparin Sodium 40 MG/0.4 ML SYRINGE SC SCH (09:49)
--- NOTE | 2019-10-07 10:51 | PRG ---
DATE OF SERVICE: 10/07/2019 SUBJECTIVE: This morning, she is awake, alert, responsive, but clearly she is very hypoxic. Sats on room air 82%. She was placed back on 2 L. Additionally, we think she may probably have hypoventilation syndrome. OBJECTIVE: VITAL SIGNS: Otherwise, blood pressure 148/81, pulse 74, temperature 98, respirations 18. CHEST: Decreased breath sounds. No wheezing. CARDIAC: Normal S1, S2. No gallops. ABDOMEN: No masses. Bicarb is 36. IMPRESSION: 1. Acute on chronic respiratory failure, status post intubation. 2. Diastolic dysfunction. PLAN: She is on Omnicef, Lovenox, Lasix. Continue PT, supportive care, eventually placement. Eventual outpatient sleep study. Job ID: [id number]
--- NOTE | 2019-10-07 13:00 | RAD ---
AP CHEST: Date: 10/07/2019 HISTORY: CHF. COMPARISON: 10/04/2019. FINDINGS/IMPRESSION: Cardiomegaly. Mild vascular engorgement. Congestive findings appear improved when compared to the freddy or exam. There is hazy atelectasis or infiltrate in both lung bases and I cannot exclude small effusi ons. POS: C
--- NOTE | 2019-10-07 15:26 | PDOC.HOSPP ---
- Subjective Encounter Date: 10/07/19 Encounter Time: 08:30 Subjective: awake, no sob, feels better is amb in room - Objective Vital Signs & Weight: Vital Signs (12 hours) Temp Pulse Resp BP BP BP Pulse Ox 10/07/19 12:38 68 16 80 L 10/07/19 09:48 74 148/81 H 10/07/19 08:00 93 L 10/07/19 07:39 98.4 F 74 16 148/81 H 93 L 10/07/19 07:07 91 L 10/07/19 07:05 65 16 91 L 10/07/19 04:46 97.9 F 73 18 155/70 H 91 L Weight Admit Weight 214 lb Weight 227 lb 11.8 oz Most Recent Monitor Data Heart Rate from ECG 83 NIBP 159/87 NIBP BP-Mean 111 Respiration from ECG 32 SpO2 90 I&O: 10/06/19 10/07/19 10/08/19 06:59 06:59 06:59 Intake Total 969 1089 Output Total 2200 1235 Balance -1231 -146 Result Diagrams: 10/06/19 04:04 10/07/19 05:33 Hospitalist ROS - Medication Medications: Active Medications Generic Name Dose Route Start Last Admin Trade Name Freq PRN Reason Stop Dose Admin Albuterol/Ipratropium 3 ml 10/01/19 13:00 10/07/19 12:38 Duoneb NEB 3 ml [id number] RAHEEL Administration Amlodipine Besylate 5 mg 10/04/19 09:00 10/07/19 09:48 Norvasc PO 5 mg DAILY RAHEEL Administration Cefdinir 300 mg 10/04/19 09:00 10/07/19 09:48 Omnicef PO 10/09/19 09:01 300 mg BID RAHEEL Administration Clonidine 0.2 mg 10/04/19 09:00 10/07/19 09:48 Catapres PO 0.2 mg BID RAHEEL Administration Enoxaparin Sodium 40 mg 10/01/19 09:00 10/07/19 09:49 Lovenox SC 40 mg 0900 RAHEEL Administration Furosemide 40 mg 10/07/19 07:30 10/07/19 09:48 Lasix PO 40 mg DAILY-AC RAHEEL Administration Hydralazine HCl 10 mg 09/30/19 18:17 02/02/20 06:08 Apresoline SLOW IVP 10 mg Q4H PRN Administration SBP Greater Than 180 Levothyroxine Sodium 200 mcg 10/04/19 06:00 10/07/19 05:25 Synthroid PO 200 mcg 0600 RAHEEL Administration Scopolamine 1.5 mg 10/02/19 19:00 10/05/19 18:04 Transderm Scop TD 1.5 mg Q3D RAHEEL Administration - Exam General Appearance: awake alert Eye: PERRL, anicteric sclera ENT: no oropharyngeal lesions, moist mucosa Neck: supple, no JVD Heart: RRR, no murmur Respiratory: no wheezes, no rales, rhonchi Gastrointestinal: soft, non-tender, non-distended, normal bowel sounds Extremities: no cyanosis, no edema Neurological: cranial nerve grossly intact, no focal deficits Psychiatric: normal affect, A&O x 3 Hosp A/P (1) BECKY (acute kidney injury) Code(s): N17.9 - ACUTE KIDNEY FAILURE, UNSPECIFIED Status: Resolved (2) Acute on chronic diastolic CHF (congestive heart failure) Code(s): I50.33 - ACUTE ON CHRONIC DIASTOLIC (CONGESTIVE) HEART FAILURE Status : Acute (3) Acute respiratory failure with hypoxia and hypercapnia Code(s): J96.01 - ACUTE RESPIRATORY FAILURE WITH HYPOXIA; J96.02 - ACUTE RESPIRATORY FAILURE WITH HYPERCAPNIA Status: Acute (4) Hypothyroidism Code(s): E03.9 - HYPOTHYROIDISM, UNSPECIFIED Status: Chronic Qualifiers: Hypothyroidism type: unspecified Qualified Code(s): E03.9 - Hypothyroidism , unspecified (5) Morbid obesity Code(s): E66.01 - MORBID (SEVERE) OBESITY DUE TO EXCESS CALORIES Status: Chronic (6) ERIKA (obstructive sleep apnea) Code(s): G47.33 - OBSTRUCTIVE SLEEP APNEA (ADULT) (PEDIATRIC) Status: Suspected (7) Tobacco abuse Code(s): Z72.0 - TOBACCO USE Status: Chronic - Plan continue norvasc, clonidine, lasix, nebs, synthroid, omnicef is on nasal canula 2 lts. PT/OT eval, oob to chair and amb as tolerated awaiting placement, if she ambulates well then home echo showed normal ef with lvh hemostable dc adams cath.
[2019-10-08] MEDS: Levothyroxine Sodium 100 MCG TAB PO SCH (05:26)
[2019-10-08 06:28] LABS: Anion Gap 12 mmol/L (10-20); BUN (Urea Nitrogen) 11 mg/dL (9.8-20.1); Calc. Creatinine Clearance 126 mL/min (70-130); Calcium 8.5 mg/dL (7.8-10.44); Carbon Dioxide 35 mmol/L (22-29); Chloride 97 mmol/L (98-107); Estimated GFR-MDRD 87; Glucose 75 mg/dL (70-105); Potassium 3.2 mmol/L (3.5-5.1); Sodium 141 mmol/L (136-145)
[2019-10-08 08:20] VITALS: TEMP 98.6
--- NOTE | 2019-10-08 09:35 | PRG ---
DATE OF SERVICE: 10/08/2019 SUBJECTIVE: This morning, she is better, less shortness of breath, less cough. OBJECTIVE: VITAL SIGNS: Temperature 98, pulse 79, respiratory rate 20, sats 98% on 1 L, blood pressure 160/76. CHEST: No wheezing or crackles. CARDIAC: Normal S1 and S2. No gallops. ABDOMEN: No masses. DIAGNOSTIC DATA: X-ray shows much improvement in bilateral infiltrates, effusion, diastolic dysfunction, metabolic acidosis, morbid obesity, sleep apnea, COPD, hypothyroid. PLAN: Pulmonary tolentino she can be sent to the rehab any time. Last TSH was down to 18, much improved. Job ID: [id number]
[2019-10-08] MEDS: cloNIDine 0.2 MG TAB PO SCH (10:19)
[2019-10-08] MEDS: Amlodipine 5 MG TAB PO SCH (10:19)
[2019-10-08] MEDS: Enoxaparin Sodium 40 MG/0.4 ML SYRINGE SC SCH (10:19)
[2019-10-08] MEDS: Furosemide 40 MG TAB PO SCH (10:19)
[2019-10-08] MEDS: Cefdinir 300 MG CAP PO SCH (10:19)
[2019-10-08 12:17] VITALS: BP 167/77
--- NOTE | 2019-10-08 15:06 | PDOC.HOSPP ---
- Subjective Encounter Date: 10/08/19 Encounter Time: 08:20 Subjective: no sob, is ambulating in room mom at bedside feels good - Objective Vital Signs & Weight: Vital Signs (12 hours) Temp Pulse Resp BP Pulse Ox 10/08/19 12:00 98.6 F 66 20 167/77 H 97 10/08/19 08:18 98.6 F 73 20 160/76 H 95 10/08/19 08:00 95 10/08/19 07:08 93 L 10/08/19 07:06 68 18 93 L 10/08/19 03:49 97.9 F 75 18 152/63 H 91 L Weight Admit Weight 214 lb Weight 227 lb 11.8 oz Most Recent Monitor Data Heart Rate from ECG 83 NIBP 159/87 NIBP BP-Mean 111 Respiration from ECG 32 SpO2 90 I&O: 10/07/19 10/08/19 10/09/19 06:59 06:59 06:59 Intake Total 1089 720 Output Total 1235 1150 Balance -146 -430 Result Diagrams: 10/06/19 04:04 10/08/19 05:18 Hospitalist ROS - Medication Medications: Active Medications Generic Name Dose Route Start Last Admin Trade Name Freq PRN Reason Stop Dose Admin Albuterol/Ipratropium 3 ml 10/01/19 13:00 10/08/19 07:06 Duoneb NEB 3 ml [id number] RAHEEL Administration Amlodipine Besylate 5 mg 10/04/19 09:00 10/08/19 10:19 Norvasc PO 5 mg DAILY RAHEEL Administration Cefdinir 300 mg 10/04/19 09:00 10/08/19 10:19 Omnicef PO 10/09/19 09:01 300 mg BID RAHEEL Administration Clonidine 0.2 mg 10/04/19 09:00 10/08/19 10:19 Catapres PO 0.2 mg BID RAHEEL Administration Enoxaparin Sodium 40 mg 10/01/19 09:00 10/08/19 10:19 Lovenox SC 40 mg 0900 RAHEEL Administration Furosemide 40 mg 10/07/19 07:30 10/08/19 10:19 Lasix PO 40 mg DAILY-AC RAHEEL Administration Hydralazine HCl 10 mg 09/30/19 18:17 10/06/19 06:08 Apresoline SLOW IVP 10 mg Q4H PRN Administration SBP Greater Than 180 Levothyroxine Sodium 200 mcg 10/04/19 06:00 10/08/19 05:26 Synthroid PO 200 mcg 0600 RAHEEL Administration Scopolamine 1.5 mg 10/02/19 19:00 10/05/19 18:04 Transderm Scop TD 1.5 mg Q3D RAHEEL Administration - Exam General Appearance: awake alert Eye: PERRL, anicteric sclera ENT: no oropharyngeal lesions, moist mucosa Neck: supple, no JVD Heart: RRR, no murmur Respiratory: no wheezes, no rales Gastrointestinal: soft, non-tender, non-distended, normal bowel sounds Extremities: no cyanosis, no edema Neurological: cranial nerve grossly intact, no focal deficits Hosp A/P (1) BECKY (acute kidney injury) Code(s): N17.9 - ACUTE KIDNEY FAILURE, UNSPECIFIED Status: Resolved (2) Acute on chronic diastolic CHF (congestive heart failure) Code(s): I50.33 - ACUTE ON CHRONIC DIASTOLIC (CONGESTIVE) HEART FAILURE Status : Resolved (3) Acute respiratory failure with hypoxia and hypercapnia Code(s): J96.01 - ACUTE RESPIRATORY FAILURE WITH HYPOXIA; J96.02 - ACUTE RESPIRATORY FAILURE WITH HYPERCAPNIA Status: Resolved (4) Hypothyroidism Code(s): E03.9 - HYPOTHYROIDISM, UNSPECIFIED Status: Chronic Qualifiers: Hypothyroidism type: unspecified Qualified Code(s): E03.9 - Hypothyroidism , unspecified (5) Morbid obesity Code(s): E66.01 - MORBID (SEVERE) OBESITY DUE TO EXCESS CALORIES Status: Chronic (6) ERIKA (obstructive sleep apnea) Code(s): G47.33 - OBSTRUCTIVE SLEEP APNEA (ADULT) (PEDIATRIC) Status: Suspected (7) Tobacco abuse Code(s): Z72.0 - TOBACCO USE Status: Chronic - Plan continue norvasc, clonidine, lasix, nebs, synthroid, omnicef is on nasal canula 2 lts. PT/OT eval, oob to chair and amb as tolerated dc to snf, has been accepted. echo showed normal ef with lvh hemostable d/w mother and pt at bedside
--- NOTE | 2019-10-08 17:25 | DIS ---
DATE OF ADMISSION: 09/30/2019 DATE OF DISCHARGE: 10/08/2019 DISCHARGE DISPOSITION: [facility]. PRIMARY DISCHARGE DIAGNOSES: Acute respiratory failure with hypoxia and hypercarbia, resolved; acute on chronic congestive heart failure exacerbation with diastolic dysfunction, AHA stage C, resolved; acute kidney injury, resolved; suspected obstructive sleep apnea, for outpatient sleep study; morbid obesity; hypothyroidism; tobacco abuse. PROCEDURES DONE DURING HOSPITALIZATION: Chest x-ray done on the day of admission showed pulmonary vascular congestion. Echo with 2D Doppler showed EF of 60% to 65% with moderate concentric LVH. She had grade 1/3 diastolic dysfunction. RV systolic pressures were estimated at 37 mmHg. Blood cultures x2, no growth. Urine culture, no growth. Discharge white count of 7.9, H and H of 16 and 54, platelet count 217, MCV is 99. Blood gas on arrival showed a pH of 7.23, pCO2 of 107, PO2 of 53. Serum bicarb is 35, BUN 11, creatinine 0.8. Free T3 less than 1.0, free T4 of 0.7, TSH 18.7. Initial BUN and creatinine were 31 and 1.3. DISCHARGE MEDICATIONS: 1. Synthroid 200 mcg p.o. daily. 2. Norvasc 5 mg p.o. daily. 3. Aspirin 81 mg p.o. daily. 4. Coreg 6.25 mg p.o. twice daily. 5. Lasix 40 mg daily. 6. Risperdal 0.5 mg p.o. at bedtime. 7. Omnicef 300 mg p.o. twice daily for another 3 days. 8. Clonidine 0.2 mg p.o. twice daily. 9. DuoNeb q.6 hourly. 10. Potassium chloride 10 mEq p.o. daily. INPATIENT CONSULT: Dr. Van for Pulmonology. Dr. Trejo for Cardiology. DISCHARGE PLAN: The patient to follow up with her primary care physician, Dr. Silverio, in 1 week. She needs to follow up with Dr. Trejo in 2 weeks. BRIEF COURSE DURING HOSPITALIZATION: The patient initially got admitted on the with acute respiratory failure. She also had acute CHF exacerbation with diastolic dysfunction. She was initially put on BiPAP at [place], but the patient required higher levels of oxygen and her pCO2 was more than 100 and had to be intubated. She was admitted to ICU. She has had consultation with Dr. Van/Vinod for Pulmonology. The patient was gently diuresed as well during her stay here. She was extubated successfully. The patient is ambulating in the room prior to discharge. She is tolerating oral solid diet. Her medications were optimized. She is being discharged to swing bed at [place] for further recuperation prior to going home. The patient's TSH, free T3, free T4 need to be rechecked in 4 to 6 weeks. The patient likely has obesity, hypoventilation, and obstructive sleep apnea for which she needs outpatient sleep studies. This needs to be arranged via primary care physician's office referral. Please note, I have seen and examined the patient on the day of discharge. A total of 35 minutes was spent on discharge plan. Job ID: [id number]
== END 2019-10-08 16:22 | disposition swing bed (61) | DRG 208 ==
LOC: ERS 14:11 → CCU 16:29 → T4-A 10-06 18:00
PROVIDERS: ADMIT Emergency Medicine; ATTEND Emergency Medicine
PROC: 0D9670Z Drainage of Stomach with Drainage Device, Via Natural or Artificial Opening (ICD-10-PCS; 2019-09-30)
PROC: 5A1945Z Respiratory Ventilation, 24-96 Consecutive Hours (ICD-10-PCS; 2019-09-30)
PROC: 0BH17EZ Insertion of Endotracheal Airway into Trachea, Via Natural or Artificial Opening (ICD-10-PCS; 2019-09-30)
PROC: 0B9M8ZX Drainage of Bilateral Lungs, Via Natural or Artificial Opening Endoscopic, Diagnostic (ICD-10-PCS; principal; 2019-10-03)
DX: J96.02 Acute respiratory failure with hypercapnia (principal); I50.33 Acute on chronic diastolic (congestive) heart failure; R40.2212 Coma scale, best verbal response, none, at arrival to emergency department; N17.9 Acute kidney failure, unspecified; J98.11 Atelectasis; Z68.41 Body mass index [BMI] 40.0-44.9, adult; J44.1 Chronic obstructive pulmonary disease with (acute) exacerbation; E87.2 Acidosis; I11.0 Hypertensive heart disease with heart failure; J96.01 Acute respiratory failure with hypoxia; G47.33 Obstructive sleep apnea (adult) (pediatric); E03.9 Hypothyroidism, unspecified; F32.9 Major depressive disorder, single episode, unspecified; F17.210 Nicotine dependence, cigarettes, uncomplicated; R40.2352 Coma scale, best motor response, localizes pain, at arrival to emergency department; R40.2132 Coma scale, eyes open, to sound, at arrival to emergency department; E66.01 Morbid (severe) obesity due to excess calories; Z90.710 Acquired absence of both cervix and uterus; Z71.6 Tobacco abuse counseling
CPT/HCPCS: 31500; 36415; 36416; 51702; 71045; 80048; 82805; 83735; 83880; 84100; 84439; 84443; 84481; 85025; 87040; 87086; 93005; 93306; 93798; 94003; 94640; 94660; 96365; 96366; J0360; J0692; J1120; J1650; J1940; J2060; J2704; J2920; J3010; J3490; J7620; S0028

== ENCOUNTER 2019-10-15 19:00 | Outpatient (CLI) | payer MEDICARE, MEDICAID | END 2019-10-15 19:01 | disposition home or self-care (01) | LOC: SLEEPLAB 19:00 | PROVIDERS: ATTEND Family Medicine | DX: G47.33 Obstructive sleep apnea (adult) (pediatric) (principal); R53.83 Other fatigue; E66.9 Obesity, unspecified; R06.83 Snoring; R06.89 Other abnormalities of breathing; I11.0 Hypertensive heart disease with heart failure; I50.9 Heart failure, unspecified; R09.02 Hypoxemia | CPT/HCPCS: 95806 ==